=== PATIENT | male | born 1945 | race Caucasian/White ===

== ENCOUNTER 2020-07-26 17:39 | Inpatient (IN) | payer MEDICARE, BC, OTHER ==
[2020-07-26 18:20] LABS: #Lymphocytes 1.2 thou/uL (1.20-3.40); #Monocytes 1.2 thou/uL (0.11-0.59); #Neutrophils 12.4 thou/uL (1.40-6.50); %Basophils 0.2 % (0.0-1.0); %Eosinophils 0.1 % (0.0-10.0); %Lymphocytes 8.2 % (21.0-51.0); %Neutrophils 83.6 % (42.0-75.0); Hemoglobin 14.8 g/dL (14.0-18.0); Mean Corpuscular HGB CONC 33.1 g/dL (32.0-36.0); Mean Corpuscular Hemoglobin 31.6 pg (27.0-31.0); Mean Corpuscular Volume 95.5 fL (78.0-98.0); Mean Platelet Volume 8.4 fL (7.4-10.4); Platelet Count 190 thou/uL (130-400); RBC Distribution Width 12.5 % (11.5-14.5); Red Blood Cell (RBC) Count 4.67 mill/uL (4.70-6.10); White Blood Cell (WBC) Count 14.9 thou/uL (4.8-10.8)
--- NOTE | 2020-07-26 18:27 | CT ---
CT BRAIN WITHOUT CONTRAST HISTORY: Altered mental status. Level 2 stroke. Right-sided weakness Comparison 05/15/2013 FINDINGS: The changes of cortical atrophy, chronic small cell ischemic disease, old infarctions in the basal ga nglia and left frontal and left temporal lobe. The ventricular size is appropriate and the basilar cisterns patent. No evidence of acute infarct, hemorrhage, midline shift or abnormal extra-axial fluid collections are seen. The bony calvarium is intact. The visualized paranasal sinuses and mastoid air cells are well-aerated. IMPRESSION: No CT evidence of acute intracranial process. Discussed over the telephone with ER physician Dr. Jun Bergman at 6:23 PM
--- NOTE | 2020-07-26 18:32 | RAD ---
XR Chest 1 View Portable HISTORY: Altered mental status COMPARISON: 02/12/2020 FINDINGS: The heart size is enlarged. The lungs are well expanded without focal areas of consolidatio n, pneumothorax or pleural effusions. There is no evidence of josie pulmonary edema. Soft tissue prominence in the right paratracheal regio n is again seen. IMPRESSION: No radiographic evidence of acute cardiopulmonary process.
[2020-07-26 18:37] LABS: INR-International Normal Ratio 1.2; PTT 36.8 sec (22.9-36.1); Prothrombin Time 15.2 sec (12.0-14.7)
[2020-07-26 18:44] LABS: ALT (SGPT) 17 U/L (8-55); AST (SGOT) 14 U/L (5-34); Albumin 3.8 g/dL (3.4-4.8); Alkaline Phosphatase 138 U/L (40-110); Anion Gap 16 mmol/L (10-20); BUN (Urea Nitrogen) 31 mg/dL (8.4-25.7); Bilirubin, Total 1.4 mg/dL (0.2-1.2); CK (CPK) 188 U/L (30-200); Calc. Creatinine Clearance 0 mL/min (70-130); Calcium 9.2 mg/dL (7.8-10.44); Carbon Dioxide 25 mmol/L (23-31); Chloride 109 mmol/L (98-107); Estimated GFR-MDRD 20; Globulin 4.3 g/dL (2.4-3.5); Glucose 118 mg/dL (83-110); Potassium 4.1 mmol/L (3.5-5.1); Protein, Total 8.1 g/dL (5.8-8.1); Sodium 146 mmol/L (136-145)
[2020-07-26 19:10] LABS: Bilirubin 1+ (Negative); Blood, Urine Trace (Negative); Clarity Turbid (Clear); Glucose, Urine (Dipstick) Normal (Negative); Ketone, Urine Trace mg/dL (Negative); Leukocyte 75 Leu/uL (Negative); Nitrite Negative (Negative); Protein, Urine (Dipstick) 70 mg/dL (Neg-Trace); Squamous Epithelial 0-3 HPF (0-3)
[2020-07-26 19:12] LABS: Lipase 12 U/L (8-78)
[2020-07-26 19:15] LABS: Bacteria/HPF 1+ HPF (None Seen)
[2020-07-26] MEDS ORDERED: cefTRIAXone\\ROCEPHIN 1 GM VIAL ONE (20:16)
[2020-07-26] MEDS ORDERED: cefTRIAXone\\ROCEPHIN 2 GM VIAL ONE (20:23)
[2020-07-26] MEDS ORDERED: Aspirin Chewable 81 MG TAB ONE (20:39)
[2020-07-26] MEDS ORDERED: Vancomycin 1 GM/200 ML BAG ONE (20:59)
[2020-07-26 21:27] LABS: Lactic Acid 3.8 mmol/L (0.5-2.2)
[2020-07-26 22:58] VITALS: BMI 33.9
[2020-07-26] MEDS ORDERED: Ondansetron ODT 4 MG TAB PO PRN (23:00)
[2020-07-26] MEDS ORDERED: Acetaminophen 500 MG TAB PO PRN (23:00)
[2020-07-26] MEDS ORDERED: Loperamide HCl 2 MG CAP PO PRN (23:00)
[2020-07-26] MEDS ORDERED: Ondansetron PF 4 MG/2 ML Vial IVP PRN (23:00)
[2020-07-27] MEDS: Cefepime 1 GM in Sodium Chloride 0.9% 100 ML IVPB SCH ×2 (00:44→13:01)
[2020-07-27] MEDS: Sodium Chloride 0.9% 1,000 ML IV SCH ×3 (00:46→16:38)
--- NOTE | 2020-07-27 01:33 | HP ---
PRIMARY CARE PROVIDER: Dr. Wayne Zurita. CHIEF COMPLAINT: Altered mental status and weakness. HISTORY OF PRESENT ILLNESS: This is a 75-year-old male, who presents to [facility] Emergency Department in transfer from [facility] in [place], [place] after skilled nursing staff noted the patient with decreased level of consciousness and questionable right facial droop. 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 The history is obtained after review of the electronic medical record as the patient is unable to provide a coherent history due to severe aphasia. The patient is bed-bound at baseline, requiring assistance for all activities of daily living. In the emergency room, the patient underwent general evaluation, receiving treatment for suspected urinary tract infection with intravenous vancomycin and Rocephin. The patient was also meeting sepsis criteria and received IV fluid resuscitation, aspirin 324 mg, and was referred to the Hospitalist Service for further evaluation. PAST MEDICAL HISTORY: 1. 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 2. Bed-bound status. 3. Gastroesophageal reflux disease. 4. Dementia. 5. History of metabolic encephalopathy. 6. Hypertension. 7. Dysphagia status post PEG tube with subsequent removal. 8. COVID-19 pneumonia. PAST SURGICAL HISTORY: Status post PEG tube placement with subsequent removal 2019. CURRENT MEDICATIONS: 1. Lipitor 10 mg p.o. at bedtime. 2. Losartan 25 mg p.o. daily. 3. Amlodipine 5 mg p.o. daily. ALLERGIES: ASPARTAME, CODEINE, AND GUAIFENESIN. FAMILY HISTORY: Positive for hypertension. SOCIAL HISTORY: Resides at [place], [place]. No alcohol, tobacco, or illicit drug use. Bedbound status at baseline. REVIEW OF SYSTEMS: Unobtainable due to the patient's altered mental status and expressive aphasia. PHYSICAL EXAMINATION: VITAL SIGNS: On admission; blood pressure 99/78, pulse 104, respiratory rate 22, temperature 97.8 degrees Fahrenheit, and O2 saturation 96% on room air. GENERAL APPEARANCE: This is a 75-year-old male, alert, nods to questions with expressive aphasia, in no acute distress. HEENT: Pupils are equal, round, and reactive to light and accommodation. Extraocular muscles are intact. No scleral icterus. No conjunctival injection. Nares patent. OP is clear. Oral mucosa dry. NECK: Supple. No cervical adenopathy. No thyromegaly. No carotid bruits. No JVD appreciated. No meningeal signs noted. CHEST: Scattered coarse rhonchi in the bases, otherwise clear. CARDIOVASCULAR: S1 and S2 without noted murmur, rub, or gallop. ABDOMEN: Rounded, soft, nontender, and nondistended. Bowel sounds are positive in all 4 quadrants. No palpable mass. No rebound or guarding appreciated. Previous PEG tube insertion sites noted clean, dry, and intact. EXTREMITIES: Warm and dry with fair turgor. Pitting edema to the proximal shins bilaterally. Pulses palpable distally at the dorsalis pedis, posterior tibial, and popliteal arteries bilaterally. Capillary refill less than 2 seconds. NEUROLOGIC: Expressive aphasia. Right hemiplegia. Alert and oriented to person. PERTINENT LABORATORY AND X-RAY FINDINGS: Sodium 146, potassium 4.1, chloride 109, CO2 of 25, BUN 31, creatinine 3.07, estimated GFR of 20, glucose 118, lactic acid level ranged between 2.9 to 3.8, calcium 9.2, total bilirubin 1.4, AST 14, ALT of 17, alkaline phosphatase 138, and total CK of 188. BNP 48. Lipase 12. CBC showed a white blood cell count of 14.9, hemoglobin 14.8, hematocrit 44.6, and platelet count 190 with 84% neutrophils. PT 15.2, INR 1.2, and PTT 36.8. Urinalysis showed a turbid specimen with specific gravity 1.030, positive protein, and positive leukocyte esterase with 7 to 10 rbc's and 11 to 20 wbc's per high-powered field. Portable chest x-ray dated 07/26/2020, showed no acute cardiopulmonary process. CT of the brain without contrast dated 07/26/2020, showed no acute intracranial process. EKG dated 07/26/2020, by my interpretation shows sinus mechanism with heart rates in the 90s. Attenuated R-waves noted in the precordial leads. Normal axis. No acute ST-T wave changes appreciated. ASSESSMENT AND PLAN: 1. Sepsis due to urinary tract infection. The patient will be admitted to the medical floor. We will continue intravenous normal saline at 125 mL/h. Continue Levaquin 500 mg IV q.48 hours. Continue cefepime 1 g IV q.12 hours. Blood and urine cultures pending. Serial lactic acid monitoring. 2. Acute metabolic encephalopathy. Secondarily to #1. We will continue supportive management as outlined in #1. Serial monitoring. 3. Acute kidney injury on chronic kidney disease stage 3. Continue IV fluids as outlined previously. Avoid nephrotoxic agents and limit contrast exposure. Serial creatinine monitoring. Place Alvarez catheter for accurate measurements of output. 4. Lactic acidosis. Secondarily to #1. Continue serial monitoring. 5. Cerebrovascular accident with right hemiplegia and expressive aphasia. Continue routine care and monitor for evidence of aspiration. Turning protocol. 6. Prophylaxis. Sequential compression devices while in bed. Pepcid 20 mg IV b.i.d. 7. Code status is full. Surrogate medical decision maker is the patient's daughter. Job ID: [id number]
[2020-07-27 02:30] LABS: Lactic Acid 1.8 mmol/L (0.5-2.2)
[2020-07-27 06:02] LABS: #Lymphocytes 1.6 thou/uL (1.20-3.40); #Monocytes 1.5 thou/uL (0.11-0.59); #Neutrophils 8.2 thou/uL (1.40-6.50); %Basophils 0.2 % (0.0-1.0); %Eosinophils 0.4 % (0.0-10.0); %Lymphocytes 13.8 % (21.0-51.0); %Monocytes 13.3 % (0.0-10.0); %Neutrophils 72.3 % (42.0-75.0); Hemoglobin 12.9 g/dL (14.0-18.0); Mean Corpuscular HGB CONC 32.8 g/dL (32.0-36.0); Mean Corpuscular Hemoglobin 31.6 pg (27.0-31.0); Mean Corpuscular Volume 96.5 fL (78.0-98.0); Mean Platelet Volume 8.8 fL (7.4-10.4); Platelet Count 140 thou/uL (130-400); RBC Distribution Width 12.4 % (11.5-14.5); Red Blood Cell (RBC) Count 4.07 mill/uL (4.70-6.10); White Blood Cell (WBC) Count 11.3 thou/uL (4.8-10.8)
[2020-07-27 06:26] LABS: ALT (SGPT) 15 U/L (8-55); AST (SGOT) 16 U/L (5-34); Albumin 3.1 g/dL (3.4-4.8); Alkaline Phosphatase 108 U/L (40-110); Anion Gap 15 mmol/L (10-20); BUN (Urea Nitrogen) 25 mg/dL (8.4-25.7); Bilirubin, Total 0.8 mg/dL (0.2-1.2); Calc. Creatinine Clearance 48 mL/min (70-130); Calcium 7.9 mg/dL (7.8-10.44); Carbon Dioxide 19 mmol/L (23-31); Chloride 115 mmol/L (98-107); Estimated GFR-MDRD 32; Globulin 3.5 g/dL (2.4-3.5); Glucose 105 mg/dL (83-110); Potassium 3.8 mmol/L (3.5-5.1); Protein, Total 6.6 g/dL (5.8-8.1); Sodium 145 mmol/L (136-145)
[2020-07-27] MEDS: Amlodipine 5 MG TAB PO SCH (08:37)
[2020-07-27] MEDS: Famotidine/PF 20 mg/2ml Vial SLOW IVP SCH (08:37)
[2020-07-27] MEDS ORDERED: Cefepime 2 GM in Sodium Chloride 0.9% 100 ML IVPB SCH (09:00)
--- NOTE | 2020-07-27 11:34 | PDOC.HOSPP ---
- Subjective Encounter Date: 07/27/20 Encounter Time: 11:31 Subjective: Mr. Kaufman was seen today in follow-up of UTI and generalized weakness. He has expressive aphasia so he is not able to express his needs. He is awake, he appears a bit weak. - Objective Vital Signs & Weight: Vital Signs (12 hours) Temp Pulse Resp BP BP BP Pulse Ox 07/27/20 11:23 98 F 82 20 113/69 94 L 07/27/20 08:37 80 131/63 07/27/20 08:29 99 07/27/20 07:43 97.6 F 18 07/27/20 07:17 99.0 F 89 24 H 131/63 99 07/27/20 03:00 98.1 F 95 16 102/58 L 97 07/26/20 23:53 97 Weight Admit Weight 243 lb Weight 243 lb Result Diagrams: 07/27/20 05:26 07/27/20 05:26 Hospitalist ROS - Medication Medications: Active Medications Generic Name Dose Route Start Last Admin Trade Name Freq PRN Reason Stop Dose Admin Amlodipine Besylate 5 mg 07/27/20 09:00 07/27/20 08:37 Amlodipine 5 Mg Tab PO 5 mg DAILY ANTONIO Administration Famotidine 20 mg 07/27/20 09:00 07/27/20 08:37 Famotidine/Pf 20 Mg/2ml Vial SLOW IVP 20 mg 0900 ANTONIO Administration Sodium Chloride 1,000 mls @ 125 mls/hr 07/26/20 23:00 07/27/20 06:02 Normal Saline 0.9% IV 1,000 mls .Q8H ANTONIO Administration Cefepime HCl 1 gm/ Sodium 100 mls @ 200 mls/hr 07/27/20 01:00 07/27/20 00:44 Chloride IVPB 100 mls 0100,1300 ANTONIO Administration Ondansetron HCl 4 mg 07/26/20 23:00 07/27/20 09:49 Ondansetron Pf 4 Mg/2 Ml Vial IVP 4 mg Q6H PRN Administration Nausea/Vomiting - Exam Eye: PERRL, anicteric sclera ENT: dry oral mucosa Heart: RRR, no murmur, no gallops, no rubs, normal peripheral pulses Respiratory: CTAB, no wheezes, no rales, no ronchi, normal chest expansion, no tachypnea Gastrointestinal: soft, non-tender, non-distended, normal bowel sounds, no palpable masses Extremities: no cyanosis, no edema Hosp A/P (1) UTI (urinary tract infection) Status: Acute (2) Generalized weakness Code(s): R53.1 - WEAKNESS Status: Acute (3) Hypertension Code(s): I10 - ESSENTIAL (PRIMARY) HYPERTENSION Status: Chronic (4) Dementia Code(s): F03.90 - UNSPECIFIED DEMENTIA WITHOUT BEHAVIORAL DISTURBANCE Status: Chronic (5) CVA, old, aphasia Code(s): I69.320 - APHASIA FOLLOWING CEREBRAL INFARCTION Status: Chronic (6) Acute kidney injury Code(s): N17.9 - ACUTE KIDNEY FAILURE, UNSPECIFIED Status: Acute - Plan * UTI- continue Levaquin and Cefepime pending culture results * SONIA- due to pre-renal azotemia- improving with hydration * History of CVA with aphasia- aspiration precautions * HTN- blood pressure is stable- will continue Amlodipine, but will hold Losartan due to acute kidney injury * Dementia- stable
[2020-07-27] MEDS: Vancomycin HCl 25 MG/ML Oral PO SCH ×2 (13:05→17:33)
[2020-07-27 15:03] LABS: SARS-CoV-2 MS2 Positive; SARS-CoV-2 N Gene Negative; SARS-CoV-2 S Gene Negative; SARS-CoV-2 by NAA Not Detected (NotDetected); SARS-CoV-2 orf1ab Negative
[2020-07-27] MEDS ORDERED: Losartan 25 MG TAB PO SCH (21:00)
[2020-07-28] MEDS: Sodium Chloride 0.9% 1,000 ML IV SCH ×4 (00:05→23:09)
[2020-07-28] MEDS: Vancomycin HCl 25 MG/ML Oral PO SCH ×4 (00:06→17:44)
[2020-07-28] MEDS: Cefepime 1 GM in Sodium Chloride 0.9% 100 ML IVPB SCH ×4 (00:06→21:25)
[2020-07-28] MEDS: Amlodipine 5 MG TAB PO SCH (08:09)
[2020-07-28] MEDS: Famotidine/PF 20 mg/2ml Vial SLOW IVP SCH (08:10)
[2020-07-28 08:44] LABS: Anion Gap 12 mmol/L (10-20); BUN (Urea Nitrogen) 15 mg/dL (8.4-25.7); Calc. Creatinine Clearance 73 mL/min (70-130); Calcium 7.8 mg/dL (7.8-10.44); Carbon Dioxide 20 mmol/L (23-31); Chloride 117 mmol/L (98-107); Estimated GFR-MDRD 52; Glucose 83 mg/dL (83-110); Magnesium 1.7 mg/dL (1.6-2.6); Potassium 3.8 mmol/L (3.5-5.1); Sodium 145 mmol/L (136-145)
--- NOTE | 2020-07-28 09:42 | PDOC.HOSPP ---
- Subjective Encounter Date: 07/28/20 Encounter Time: 09:34 Subjective: Mr. Kaufman was see today in follow-up of UTI and C. Diff. He is disoriented X3. He does not appear to have any concerns. - Objective Vital Signs & Weight: Vital Signs (12 hours) Temp Pulse Resp BP BP Pulse Ox 07/28/20 08:09 71 152/84 H 07/28/20 08:05 94 L 07/28/20 07:20 98.8 F 71 20 152/84 H 94 L 07/27/20 23:56 97.8 F 75 18 125/75 97 Weight Admit Weight 243 lb Weight 243 lb I&O: 07/27/20 07/28/20 07/29/20 06:59 06:59 06:59 Intake Total 3600 Output Total 1550 Balance 2049 Result Diagrams: 07/27/20 05:26 07/28/20 08:06 Additional Labs: Accuchecks 07/26/20 18:33 POC Glucose 136 H Hospitalist ROS - Medication Medications: Active Medications Generic Name Dose Route Start Last Admin Trade Name Freq PRN Reason Stop Dose Admin Amlodipine Besylate 5 mg 07/27/20 09:00 07/28/20 08:09 Amlodipine 5 Mg Tab PO 5 mg DAILY ANTONIO Administration Famotidine 20 mg 07/27/20 09:00 07/28/20 08:10 Famotidine/Pf 20 Mg/2ml Vial SLOW IVP 20 mg 0900 ANTONIO Administration Sodium Chloride 1,000 mls @ 125 mls/hr 07/26/20 23:00 07/28/20 09:09 Normal Saline 0.9% IV 1,000 mls .Q8H ANTONIO Administration Cefepime HCl 1 gm/ Sodium 100 mls @ 200 mls/hr 07/27/20 01:00 07/28/20 00:06 Chloride IVPB 100 mls 0100,1300 ANTONIO Administration Ondansetron HCl 4 mg 07/26/20 23:00 07/27/20 09:49 Ondansetron Pf 4 Mg/2 Ml Vial IVP 4 mg Q6H PRN Administration Nausea/Vomiting Vancomycin HCl 125 mg 07/27/20 12:00 07/28/20 05:53 Vancomycin Hcl 25 Mg/Ml Oral PO 125 mg Q6HR ANTONIO Administration - Exam Eye: PERRL, anicteric sclera Heart: RRR, no murmur, no gallops, no rubs, normal peripheral pulses Respiratory: CTAB, no wheezes, no rales, normal chest expansion Gastrointestinal: soft, non-tender, non-distended, normal bowel sounds, no palpable masses Extremities: no cyanosis, no edema Hosp A/P (1) UTI (urinary tract infection) Status: Acute (2) Generalized weakness Code(s): R53.1 - WEAKNESS Status: Acute (3) Hypertension Code(s): I10 - ESSENTIAL (PRIMARY) HYPERTENSION Status: Chronic (4) Dementia Code(s): F03.90 - UNSPECIFIED DEMENTIA WITHOUT BEHAVIORAL DISTURBANCE Status: Chronic (5) CVA, old, aphasia Code(s): I69.320 - APHASIA FOLLOWING CEREBRAL INFARCTION Status: Chronic (6) Acute kidney injury Code(s): N17.9 - ACUTE KIDNEY FAILURE, UNSPECIFIED Status: Acute - Plan * UTI- Urine culture was not done. Will consider de-escalating antibiotics tomorrow and see how he does * SONIA- continued improvement with hydration * History of CVA with aphasia- aspiration precautions * HTN- blood pressure is stable- will continue Amlodipine,continue to hold losartan * Dementia- stable
[2020-07-28] MEDS ORDERED: Levofloxacin 750 mg/D5W 500 MG in Premix Bag 1 BAG IVPB SCH (23:00)
[2020-07-29] MEDS: Vancomycin HCl 25 MG/ML Oral PO SCH ×4 (00:51→17:24)
[2020-07-29] MEDS: Sodium Chloride 0.9% 1,000 ML IV SCH ×3 (04:39→22:44)
[2020-07-29] MEDS: Cefepime 1 GM in Sodium Chloride 0.9% 100 ML IVPB SCH ×3 (04:40→22:34)
[2020-07-29 08:12] LABS: Anion Gap 11 mmol/L (10-20); BUN (Urea Nitrogen) 10 mg/dL (8.4-25.7); Calc. Creatinine Clearance 86 mL/min (70-130); Calcium 7.5 mg/dL (7.8-10.44); Carbon Dioxide 21 mmol/L (23-31); Chloride 115 mmol/L (98-107); Estimated GFR-MDRD 62; Glucose 81 mg/dL (83-110); Potassium 3.6 mmol/L (3.5-5.1); Sodium 143 mmol/L (136-145)
[2020-07-29] MEDS: Amlodipine 5 MG TAB PO SCH (08:58)
[2020-07-29] MEDS: Famotidine/PF 20 mg/2ml Vial SLOW IVP SCH ×2 (08:58→22:34)
--- NOTE | 2020-07-29 09:32 | PDOC.HOSPP ---
- Subjective Encounter Date: 07/29/20 Encounter Time: 09:28 Subjective: Mr. Kaufman was seen today in follow-up of UTI. He appears at his baseline. No diarrhea has been reported - Objective Vital Signs & Weight: Vital Signs (12 hours) Temp Pulse Resp BP BP Pulse Ox 07/29/20 08:58 64 124/72 07/29/20 07:08 98.5 F 64 18 124/72 94 L Weight Admit Weight 243 lb Weight 243 lb I&O: 07/28/20 07/29/20 07/30/20 06:59 06:59 06:59 Intake Total 3600 3984 Output Total 1550 1300 Balance 2049 2684 Result Diagrams: 07/27/20 05:26 07/29/20 07:38 Hospitalist ROS - Medication Medications: Active Medications Generic Name Dose Route Start Last Admin Trade Name Freq PRN Reason Stop Dose Admin Amlodipine Besylate 5 mg 07/27/20 09:00 07/29/20 08:58 Amlodipine 5 Mg Tab PO 5 mg DAILY ANTONIO Administration Famotidine 20 mg 07/27/20 09:00 07/29/20 08:58 Famotidine/Pf 20 Mg/2ml Vial SLOW IVP 20 mg 0900 ANTONIO Administration Sodium Chloride 1,000 mls @ 125 mls/hr 07/26/20 23:00 07/29/20 04:39 Normal Saline 0.9% IV 1,000 mls .Q8H ANTONIO Administration Levofloxacin 500 mg/ Device 100 mls @ 100 mls/hr 07/28/20 23:00 07/28/20 23:08 IVPB 100 mls Q2D@2300 ANTONIO Administration Cefepime HCl 1 gm/ Sodium 100 mls @ 200 mls/hr 07/28/20 13:00 07/29/20 04:40 Chloride IVPB 100 mls Q8H ANTONIO Administration Ondansetron HCl 4 mg 07/26/20 23:00 07/27/20 09:49 Ondansetron Pf 4 Mg/2 Ml Vial IVP 4 mg Q6H PRN Administration Nausea/Vomiting Vancomycin HCl 125 mg 07/27/20 12:00 07/29/20 04:40 Vancomycin Hcl 25 Mg/Ml Oral PO 125 mg Q6HR ANTONIO Administration - Exam Eye: PERRL, anicteric sclera Heart: RRR, no murmur, no gallops, no rubs, normal peripheral pulses Respiratory: CTAB, no wheezes, no rales, no ronchi, normal chest expansion, no tachypnea Gastrointestinal: soft, non-tender, non-distended, normal bowel sounds, no palpable masses, no hepatomegaly Extremities: no cyanosis, 1+ LE edema Hosp A/P (1) UTI (urinary tract infection) Status: Acute (2) Generalized weakness Code(s): R53.1 - WEAKNESS Status: Acute (3) Hypertension Code(s): I10 - ESSENTIAL (PRIMARY) HYPERTENSION Status: Chronic (4) Dementia Code(s): F03.90 - UNSPECIFIED DEMENTIA WITHOUT BEHAVIORAL DISTURBANCE Status: Chronic (5) CVA, old, aphasia Code(s): I69.320 - APHASIA FOLLOWING CEREBRAL INFARCTION Status: Chronic (6) Acute kidney injury Code(s): N17.9 - ACUTE KIDNEY FAILURE, UNSPECIFIED Status: Acute - Plan * UTI- Urine culture was not done. Since we do not have a urine culture to guide therapy- will treat one more day with both antibiotics * C- Diff- continue oral Vancomycin- he has not be having diarrhea * SONIA- continued improvement with hydration * History of CVA with aphasia- aspiration precautions * HTN- blood pressure is stable- will continue Amlodipine,continue to hold losartan * Dementia- stable * If he continues to be stable- will consider discharge tomorrow
--- NOTE | 2020-07-29 12:04 | PQF ---
CLINICAL DOCUMENTATION CLARIFICATION FORM: Dear Dr.TONI ZHAO Date: 07-29-20 Please exercise your independent, professional judgment in responding to the clarification form. Clinical indicators are provided on the bottom of this form for your review. Please check appropriate box(es) to clarify if the following diagnosis has been ruled in our ruled out: SEPSIS [ X ] Ruled in diagnosis [ ] Continue to treat [ ] Resolved [ ] Ruled out diagnosis [ ] Other diagnosis [ ] Unable to determine In addition, please specify: Present on Admission (POA): [ X] Yes [ ] No [ ] Unable to determine For continuity of documentation, please document condition throughout progress notes and discharge summary. Thank You. To be completed by CDI/Coding staff for physician review: CLINICAL INDICATORS - SIGNS / SYMPTOMS / LABS / RESULTS AND LOCATION IN MR: ER DX: 07-27-20: SEPSIS, AMS, UTI H&P 07-26-20: SEPSIS D/T UTI, ACUTE METABOLIC ENCEPHALOPATHY, SONIA ON CKD 3, LACTIC ACIDOSIS PN DR. ZHAO 07-29-20: F/U UTI, GENERALIZED WEAKNESS, HTN, DEMENTIA, SONIA RISK FACTORS / RESULTS AND LOCATION IN MR: H&P 07-26-20: SEPSIS D/T UTI, ACUTE METABOLIC ENCEPHALOPATHY, SONIA ON CKD 3, LACTIC ACIDOSIS TREATMENTS / RESULTS AND LOCATION IN MR: MAR: 07-27-20: VANCOMYCIN PO, MAXIPIME IV, NS IVF CDS Signature: Evelyn Alvarado Phone #: [phone] Date: 07-29-20 This is a permanent part of the Medical Record [facility]
[2020-07-30] MEDS: Vancomycin HCl 25 MG/ML Oral PO SCH ×3 (01:20→12:37)
[2020-07-30] MEDS: Cefepime 1 GM in Sodium Chloride 0.9% 100 ML IVPB SCH ×2 (06:39→12:36)
[2020-07-30] MEDS: Amlodipine 5 MG TAB PO SCH (08:25)
[2020-07-30] MEDS: Sodium Chloride 0.9% 1,000 ML IV SCH (08:26)
[2020-07-30] MEDS: Famotidine/PF 20 mg/2ml Vial SLOW IVP SCH (08:26)
--- NOTE | 2020-07-30 10:58 | PDOC.HOSPP ---
- Subjective Encounter Date: 07/30/20 Encounter Time: 10:57 Subjective: Mr. Kaufman was seen today in follow-up of UTI . He is awake and alert. No complaints voiced by staff. He has been reported to be eating well. - Objective Vital Signs & Weight: Vital Signs (12 hours) Temp Pulse Resp BP BP Pulse Ox 07/30/20 08:25 62 139/72 07/30/20 07:11 97.9 F 62 20 139/72 94 L Weight Admit Weight 243 lb Weight 243 lb I&O: 07/29/20 07/30/20 07/31/20 06:59 06:59 06:59 Intake Total 3984 820 Output Total 1300 900 Balance 9394 -80 Result Diagrams: 07/27/20 05:26 07/29/20 07:38 Hospitalist ROS - Medication Medications: Active Medications Generic Name Dose Route Start Last Admin Trade Name Freq PRN Reason Stop Dose Admin Amlodipine Besylate 5 mg 07/27/20 09:00 07/30/20 08:25 Amlodipine 5 Mg Tab PO 5 mg DAILY ANTONIO Administration Famotidine 20 mg 07/29/20 21:00 07/30/20 08:26 Famotidine/Pf 20 Mg/2ml Vial SLOW IVP 20 mg Q12HR ANTONIO Administration Sodium Chloride 1,000 mls @ 125 mls/hr 07/26/20 23:00 07/30/20 08:26 Normal Saline 0.9% IV 1,000 mls .Q8H ANTONIO Administration Cefepime HCl 1 gm/ Sodium 100 mls @ 200 mls/hr 07/28/20 13:00 07/30/20 06:39 Chloride IVPB 100 mls Q8H ANTONIO Administration Ondansetron HCl 4 mg 07/26/20 23:00 07/27/20 09:49 Ondansetron Pf 4 Mg/2 Ml Vial IVP 4 mg Q6H PRN Administration Nausea/Vomiting Vancomycin HCl 125 mg 07/27/20 12:00 07/30/20 06:39 Vancomycin Hcl 25 Mg/Ml Oral PO 125 mg Q6HR ANTONIO Administration - Exam Eye: PERRL, anicteric sclera Heart: RRR, no murmur, no gallops, no rubs, normal peripheral pulses Respiratory: CTAB, no wheezes, no rales, no ronchi, normal chest expansion, no tachypnea Gastrointestinal: soft, non-tender, non-distended, normal bowel sounds, no palpable masses, no hepatomegaly Extremities: no cyanosis, no edema Hosp A/P (1) UTI (urinary tract infection) Status: Acute (2) Generalized weakness Code(s): R53.1 - WEAKNESS Status: Acute (3) Hypertension Code(s): I10 - ESSENTIAL (PRIMARY) HYPERTENSION Status: Chronic (4) Dementia Code(s): F03.90 - UNSPECIFIED DEMENTIA WITHOUT BEHAVIORAL DISTURBANCE Status: Chronic (5) CVA, old, aphasia Code(s): I69.320 - APHASIA FOLLOWING CEREBRAL INFARCTION Status: Chronic (6) Acute kidney injury Code(s): N17.9 - ACUTE KIDNEY FAILURE, UNSPECIFIED Status: Acute - Plan * UTI- Urine culture was not done. clinically stable- will transition to Omnicef * C- Diff- continue oral Vancomycin- continue Oral Vancomycin * SONIA- continued improvement with hydration * History of CVA with aphasia- aspiration precautions * HTN- blood pressure is stable- will continue Amlodipine,continue to hold losartan * Dementia- stable * Back to the nursing facility
[2020-07-30 13:47] VITALS: BP 150/79; TEMP 97.5
--- NOTE | 2020-07-31 00:04 | DIS ---
DATE OF ADMISSION: 07/26/2020 DATE OF DISCHARGE: 07/30/2020 DISCHARGE DISPOSITION: Back to [facility]. DISCHARGE DIAGNOSES: 1. Urinary tract infection. 2. History of remote hemorrhagic cerebrovascular accident with residual right hemiplegia and expressive aphasia. 3. Bed-bound status. 4. Gastroesophageal reflux disease. 5. Dementia. 6. Hypertension. 7. Metabolic encephalopathy. 8. Dysphagia. 9. History of previous COVID-19 pneumonia. 10. Clostridium difficile infection. DISCHARGE MEDICATIONS: Include; 1. Oral vancomycin 125 mg q.6 hours for 10 more days. 2. Omnicef 300 mg p.o. b.i.d. for 5 more days. 3. Florastor 250 mg p.o. daily. 4. Ventolin HFA two puffs q.6 as needed. 5. Aspirin 325 mg 2 tablets q.4 hours as needed. 6. Lipitor 10 mg p.o. daily. 7. GlycoLax 17 g p.o. daily. 8. Cozaar 25 mg p.o. at bedtime. 9. Benzonatate 100 mg p.o. b.i.d. IMAGING DONE DURING THE HOSPITAL STAY: The patient had a CT scan of the brain, which showed no evidence of any acute intracranial process. CODE STATUS: Full code. ALLERGIES: TO ASPARTAME, CODEINE, AND GUAIFENESIN. HOSPITAL COURSE: Mr. Kaufman is a pleasant 75-year-old gentleman, who was sent over from [place] due to altered mental status and weakness. He has a known history of remote intracranial hemorrhage with some residual right hemiplegia and expressive aphasia. He was found to have a urinary tract infection; however, unfortunately, his urine culture had not been done. Blood cultures were negative. He did have some diarrhea on admission, was found to have a C. difficile infection. He was placed on oral vancomycin for this. Regarding the urinary tract infection since the urine culture had not been sent, there was no guidance with regard to antimicrobial therapy. He had done well on Levaquin and cefepime during his hospital stay. He was kept a couple additional days to ensure adequate therapy and was discharged home on oral Omnicef. He was also discharged on a probiotic as well. Job ID: [id number]
== END 2020-07-30 13:39 | DRG 871 ==
LOC: ERS 17:39 → T4-A 20:38
PROVIDERS: ADMIT Student in an Organized Health Care Education/Training Program; ATTEND Student in an Organized Health Care Education/Training Program
DX: A41.9 Sepsis, unspecified organism (principal); G93.41 Metabolic encephalopathy; I69.251 Hemiplegia and hemiparesis following other nontraumatic intracranial hemorrhage affecting right dominant side; N39.0 Urinary tract infection, site not specified; N17.9 Acute kidney failure, unspecified; E87.2 Acidosis; A04.72 Enterocolitis due to Clostridium difficile, not specified as recurrent; Z20.828 Contact with and (suspected) exposure to other viral communicable diseases; K21.9 Gastro-esophageal reflux disease without esophagitis; I12.9 Hypertensive chronic kidney disease with stage 1 through stage 4 chronic kidney disease, or unspecified chronic kidney disease; R13.10 Dysphagia, unspecified; R53.1 Weakness; F03.90 Unspecified dementia, unspecified severity, without behavioral disturbance, psychotic disturbance, mood disturbance, and anxiety; N18.3 Chronic kidney disease, stage 3 (moderate); I69.220 Aphasia following other nontraumatic intracranial hemorrhage; Z88.5 Allergy status to narcotic agent; Z88.8 Allergy status to other drugs, medicaments and biological substances; Z74.01 Bed confinement status; Z86.19 Personal history of other infectious and parasitic diseases
CPT/HCPCS: 36415; 36416; 36600; 70450; 71045; 80048; 80053; 81003; 81015; 82550; 83605; 83630; 83690; 83735; 83880; 84484; 85025; 85610; 85730; 87040; 87045; 87046; 87081; 87186; 87324; 87427; 87449; 87635; 93005; J0692; J0696; J1956; J2405; J3370; J3490; S0028; U0003

== ENCOUNTER 2020-08-14 12:59 | Inpatient (IN) | payer MEDICARE, BC, OTHER ==
[~2020-08-14 12:59] MED LIST: Iopamidol-370 76% 500 ML 1 ML ONE
[2020-08-14 13:23] LABS: #Eosinphils 0.3 thou/uL (0.0-0.7); #Lymphocytes 2.4 thou/uL (1.20-3.40); #Monocytes 0.5 thou/uL (0.11-0.59); #Neutrophils 4.5 thou/uL (1.40-6.50); %Basophils 0.3 % (0.0-1.0); %Eosinophils 3.3 % (0.0-10.0); %Lymphocytes 31.2 % (21.0-51.0); %Monocytes 6.9 % (0.0-10.0); %Neutrophils 58.3 % (42.0-75.0); Hemoglobin 13.8 g/dL (14.0-18.0); Mean Corpuscular HGB CONC 34.6 g/dL (32.0-36.0); Mean Corpuscular Hemoglobin 32.1 pg (27.0-31.0); Mean Corpuscular Volume 92.8 fL (78.0-98.0); Platelet Count 194 thou/uL (130-400); RBC Distribution Width 12.6 % (11.5-14.5); Red Blood Cell (RBC) Count 4.29 mill/uL (4.70-6.10); White Blood Cell (WBC) Count 7.8 thou/uL (4.8-10.8)
[2020-08-14 13:27] LABS: PTT 35.1 sec (22.9-36.1); Prothrombin Time 14.5 sec (12.0-14.7)
[2020-08-14 13:28] LABS: INR-International Normal Ratio 1.1
--- NOTE | 2020-08-14 13:50 | RAD ---
PORTABLE CHEST: 08/14/20 HISTORY: Mental status change. COMPARISON: 07/26/20 Lungs appear clear. No infiltrate or vascular congestion. Cardiomegaly is stable. IMPRESSION: No acute process or interval change. POS: AGW
[2020-08-14] MEDS ORDERED: Metoprolol Tartrate 5 MG/5 ML VIAL ONE (14:10)
--- NOTE | 2020-08-14 14:12 | CT ---
CT HEAD WITHOUT CONTRAST: 08/14/20 INDICATION: Level I stroke. New left sided weakness. COMPARISON: Recent CT of 07/26/20. Old left sided infarct changes again noted with encephalomalacia in the left temporal lobe and in the left frontal lobe. Severe chronic ischemic white matter changes are again noted. Old lacunar infarct s in the right basal ganglia again noted. There is no evidence of acute infarct, mass, or hemorrhage. The findings appear stable from 07/26/20. IMPRESSION: No acute interval change. Findings related to Dr. Felton at 1:15 p.m. POS: CHAZ
[2020-08-14 14:24] LABS: Albumin 3.4 g/dL (3.4-4.8)
[2020-08-14 14:25] LABS: Chloride 108 mmol/L (98-107); Sodium 143 mmol/L (136-145)
[2020-08-14 14:26] LABS: Calcium 8.6 mg/dL (7.8-10.44)
[2020-08-14 14:27] LABS: Globulin 4.2 g/dL (2.4-3.5); Glucose 83 mg/dL (83-110); Protein, Total 7.6 g/dL (5.8-8.1)
[2020-08-14 14:28] LABS: Anion Gap 14 mmol/L (10-20); Carbon Dioxide 25 mmol/L (23-31)
[2020-08-14 14:29] LABS: Bilirubin, Total 1.1 mg/dL (0.2-1.2)
[2020-08-14 14:30] LABS: Alkaline Phosphatase 103 U/L (40-110); Calc. Creatinine Clearance 0 mL/min (70-130); Estimated GFR-MDRD 58
[2020-08-14 14:31] LABS: BUN (Urea Nitrogen) 10 mg/dL (8.4-25.7)
[2020-08-14 14:32] LABS: AST (SGOT) 25 U/L (5-34)
[2020-08-14 14:33] LABS: ALT (SGPT) 23 U/L (8-55); CK (CPK) 54 U/L (30-200)
--- NOTE | 2020-08-14 14:50 | CT ---
CTA HEAD WITH CONTRAST: CTA NECK WITH CONTRAST: 08/14/20 Multiple axial tomograms obtained through the head and neck following angio protocol with multiplanar reconstruction and 3D postprocessing. INDICATIONS: Stroke protocol. Left sided weakness. CTA HEAD: The intracranial internal carotid arteries appear patent and symmetric. Cavernous ICAs are patent wit h mild atherosclerotic calcification. No significant stenosis. Both M1 segments are patent. Lumenal n arrowing of the distal left M1 segment. The degree of stenosis may approach 50% by NASCET criteria. M ild decrease in the left M2 and M3 branches at site of previously noted infarct. The basilar artery is ectatic and tortuous. Both posterior cerebral arteries are patent and appear sy mmetric. IMPRESSION: 1. There is luminal narrowing of the distal left M1 segment. Degree of stenosis may approach 50% according to NASCET criteria. 2. No other evidence of significant cerebral stenosis or occlusion. CTA NECK: No evidence of stenosis at the origin of the arch vessels. The common carotid arteries are unremarkab le. Atherosclerotic changes are seen in both bulbs. There is no evidence of extracranial internal carotid artery stenosis. The vertebral arteries are patent and symmetric. No soft tissue abnormality. IMPRESSION: Atherosclerotic changes in both bulbs without evidence of extracranial internal carotid artery stenos is. Findings relayed to Dr. Felton. Code CR POS: CHAZ
[2020-08-14] MEDS ORDERED: Aspirin 300 MG Suppository ONE (15:46)
[2020-08-14 16:21] LABS: Bacteria/HPF None Seen HPF (None Seen); Bilirubin Negative (Negative); Blood, Urine 3+ (Negative); Clarity Clear (Clear); Glucose, Urine (Dipstick) Normal (Negative); Ketone, Urine Trace mg/dL (Negative); Leukocyte Negative Leu/uL (Negative); Nitrite Negative (Negative); Protein, Urine (Dipstick) 20 mg/dL (Neg-Trace); RBC/HPF Greater than 50 HPF (0-3); Specific Gravity, Urine 1.044 (1.002-1.036); Squamous Epithelial 0-3 HPF (0-3); Urobilinogen Normal mg/dL (Less than 2); WBC/HPF 0-3 HPF (0-3)
[2020-08-14] MEDS ORDERED: hydrALAZINE 20 MG/ML VIAL SLOW IVP PRN (17:30)
[2020-08-14] MEDS ORDERED: Acetaminophen 650 MG Suppository PR PRN (17:32)
[2020-08-14] MEDS ORDERED: Albuterol Sulfate 2.5 mg/3 ml Neb NEB PRN (17:48)
--- NOTE | 2020-08-14 18:17 | HP ---
CHIEF COMPLAINT: Altered. HISTORY OF PRESENT ILLNESS: This is a 75-year-old male with history of hemorrhagic stroke, hypertension, dyslipidemia, recent hospitalization here for UTI, who was sent to this facility from the longterm due to a change in patient's status. All of the history is obtained from the nurse and the emergency room physician, who spoke with the nursing facility. The patient is sent today because he was not responsive to sternal rub, unknown last time that he was normal. All of this is new as they report that he was although bed-bound, he was getting up with physical therapy and use of a walker. The patient does have dysarthria, right-sided weakness associated with prior stroke. He also had dysphagia and had a PEG tube up until, by report, 3 weeks ago when he pulled it out. Since then, he has been taking PO. On the documentation sent from the nursing facility, it also shows that he had emesis today x1. In the emergency room, patient had an NIH score initially of 14 which went down to 11 over time. He has an abnormal CT angiogram and Dr. Felton stated that he spoke with Dr. Hooker and there is no intervention available. The patient was not a candidate for tPA. The patient received aspirin 300 mg rectal, metoprolol tartrate 5 mg IV for elevated blood pressures, although not all of it was administered as his heart rate declined into the 50s by report. Hospitalist called for admission. ALLERGIES: OBTAINED FROM CHART REVIEW; 1. ASPARTAME. 2. CODEINE. 3. GUAIFENESIN. CURRENT MEDICATIONS: Reconciled with the list from the nursing facility; 1. Acetaminophen 325 mg two tablets every 4 hours as needed. 2. Atorvastatin 10 mg once daily. 3. Benzonatate 100 mg every 12 hours as needed. 4. Florastor 250 mg once daily. 5. GlycoLax every 24 hours as needed. 6. Hydrocortisone cream to rash on face b.i.d. for 10 days. 7. Losartan 25 mg at bedtime. 8. Nystatin powder topically to scrotum 3 times a day. 9. Prozac 20 mg once a day. 10. Ventolin 3 times a day, this does not stay as needed. PAST MEDICAL HISTORY - based on chart review: 1. History of hemorrhagic stroke with right-sided deficits, dysarthria, and dysphagia. 2. Dyslipidemia. 3. Hypertension. 4. Recent UTI. 5. Recent C. difficile infection. 6. Bed-bound status. 7. GERD. 8. Dementia. 9. History of COVID-19 infection. PAST SURGICAL HISTORY: - based on chart review PEG tube with subsequent removal. REVIEW OF SYSTEMS: Not obtainable from the patient. He simply states that there are no problems. FAMILY HISTORY - based on chart review: Significant for hypertension based on chart review. SOCIAL HISTORY- based on chart review: The patient is a resident at a local nursing facility at [place]. His emergency contact is his daughter, listed in the records. He is a full code based on the documentation. PHYSICAL EXAMINATION: VITAL SIGNS: Blood pressure 159/75, temp 98.4, pulse 70, respirations 18, sat 95% on room air. GENERAL: He is awake, he follows commands. He responds with simple phrases. He is not in apparent distress. HEENT: Pupils are equal and round. No scleral icterus. Oral mucosa is dry. NECK: Supple, nontender. LYMPHATICS: No palpable cervical or supraclavicular lymphadenopathy. LUNGS: Clear to auscultation bilateral. No audible wheezing, rhonchi, or rales. HEART: Normal S1, S2. Regular rate and rhythm. No significant murmur. ABDOMEN: Soft with present bowel sounds. Nontender, nondistended. EXTREMITIES: No clubbing, cyanosis, or edema. VASCULAR: 2+ dorsalis pedis pulses. NEUROLOGIC: The patient has some garbled speech. He has decreased range of motion and strength throughout the right side, unable to fully assess. Strength 5/5 throughout the left side. PSYCH: Appears euthymic. Follows commands. Response to simple questions. SKIN: No visible rashes. LABORATORY DATA: Today, CBC, 7.8, 13.8, 39.8, 194. INR 1.1. Metabolic panel; 143, 4.0, 108, 25, 10, 1.21, 83. T bilirubin 1.1, AST 25, ALT 23, alkaline phosphatase 103, total protein 7.6, albumin 3.4. Urinalysis, spec gravity 1.044, trace ketones, 3+ blood, greater than 50 red blood cells. EKG shows sinus rhythm, normal axis, a QT corrected of 457, T-wave inversions in the inferior leads and throughout the precordium with an abnormal R-wave progression. Failed bedside swallow. Chest x-ray personally reviewed. No acute process. CT angiogram of the head shows luminal narrowing of the distal left M1 segment. The degree of stenosis may approach 50%. No other evidence of significant cerebral stenosis or occlusion. CT of the brain without contrast, no acute interval change, old left-sided infarct changes with encephalomalacia in the left temporal lobe, left frontal lobe, severe chronic ischemic white matter changes, old lacunar infarcts in the right basal ganglia. IMPRESSION: 1. Acute mental status changes concerning for an acute stroke in the context of known chronic stroke for this patient. This seems to have improved throughout the day. 2. Hypertension, unknown control. 3. Dyslipidemia, unknown control. 4. Hematuria with recent urinary tract infection. 5. Recent Clostridium difficile infection. 6. Anemia, mild. 7. Carotid stenosis on CT-A with no indication for acute surgical intervention PLAN: 1. Inpatient admission as this patient has significant deficits, requires an extensive workup and is anticipated to be here at least 2 midnights. 2. Evaluation by Neurology, the Stroke Team which includes speech, PT and OT. 3. MRI of the brain and echocardiogram. 4. N.p.o. until evaluated by Speech. We will hydrate with IV fluids. 5. Permissive hypertension with p.r.n. hydralazine if blood pressure is greater than 220/110. 6. Continue rectal aspirin dosing at every 24 hours. 7. Hold his home medications as he is n.p.o. 8. Monitor on telemetry. 9. We will order p.r.n. albuterol as it is on his medication list at the nursing facility. 10. We will need outpatient evaluation for hematuria. We will order a urine culture here. 11. Further care depending on hospital course. 12. Palliative care consult given this complex situation of what looks like an acute on chronic stroke, both to work with the patient as well his family. 13. DVT prophylaxis. We will use SCDs. 14. GI prophylaxis not indicated. 15. Code status is full. 16. The patient is at high risk given age, comorbidities, and current presentation. Job ID: [id number] [facility]
[2020-08-14 18:22] VITALS: BMI 33.5
[2020-08-14] MEDS: Sodium Chloride 0.9% 1,000 ML IV SCH (18:42)
[2020-08-15] MEDS: Sodium Chloride 0.9% 1,000 ML IV SCH ×2 (04:36→14:46)
[2020-08-15 05:36] LABS: Cardiac Risk 2.9 (Less than 4.5)
[2020-08-15 07:45] LABS: #Eosinphils 0.2 thou/uL (0.0-0.7); #Monocytes 0.5 thou/uL (0.11-0.59); #Neutrophils 3.1 thou/uL (1.40-6.50); %Basophils 0.6 % (0.0-1.0); %Eosinophils 3.5 % (0.0-10.0); %Lymphocytes 34.6 % (21.0-51.0); %Monocytes 7.9 % (0.0-10.0); %Neutrophils 53.4 % (42.0-75.0); Hemoglobin 12.5 g/dL (14.0-18.0); Mean Corpuscular Hemoglobin 31.3 pg (27.0-31.0); Platelet Count 177 thou/uL (130-400); RBC Distribution Width 12.7 % (11.5-14.5); Red Blood Cell (RBC) Count 3.99 mill/uL (4.70-6.10); White Blood Cell (WBC) Count 5.7 thou/uL (4.8-10.8)
--- NOTE | 2020-08-15 08:57 | PDOC.HOSPP ---
- Subjective Encounter Date: 08/15/20 (f/u concern for stroke) Encounter Time: 08:55 Subjective: Pt admitted yesterday due to being unresponsive - rule out stroke. No overnight events. His NIH score and responsiveness have not changed overnight. This morning - pt able to answer simple questions and follow commands - he denies any pain. - Objective Vital Signs & Weight: Vital Signs (12 hours) Temp Pulse Resp BP Pulse Ox 08/15/20 07:42 97.8 F 75 16 178/85 H 92 L 08/15/20 04:29 97.7 F 08/15/20 04:00 100.4 F H 99 20 180/91 H 94 L 08/15/20 01:08 97.8 F 79 20 179/96 H 97 08/15/20 01:05 74 Weight Weight 233 lb 7.512 oz Result Diagrams: 08/15/20 07:28 08/14/20 14:06 Additional Labs: Accuchecks 08/14/20 13:03 POC Glucose 91 EKG Reviewed by me: Yes (tele - sinus 70-100's) Hospitalist ROS - Medication Medications: Active Medications Generic Name Dose Route Start Last Admin Trade Name Freq PRN Reason Stop Dose Admin Sodium Chloride 1,000 mls @ 100 mls/hr 08/14/20 17:45 08/15/20 04:36 Normal Saline 0.9% IV 1,000 mls .Q10H ANTONIO Administration Influenza Virus Vaccine Quadrival 240 mcg 08/15/20 09:00 08/15/20 08:54 Flu Vacc [id number](65yr Up)/Pf 240 Mcg/0.7 Ml Syringe IM 08/15/20 09:01 Not Given .ONCE ONE Pneumococcal Polyvalent Vaccine 0.5 ml 08/15/20 09:00 08/15/20 08:53 Pneumococcal 23 "Pneumovax" 0.5 Ml Vial IM 08/15/20 09:01 Not Given .ONCE ONE - Exam General Appearance: NAD General - other findings: able to follow commands Heart: RRR, no murmur Respiratory: CTAB, no wheezes, no rales, no ronchi Gastrointestinal: soft, non-tender, non-distended, normal bowel sounds Extremities: no cyanosis, no clubbing, no edema Neurological - other findings: unchanged - right sided deficits UE>LE, dysarthria Hosp A/P (1) Altered mental status Code(s): R41.82 - ALTERED MENTAL STATUS, UNSPECIFIED Status: Acute (2) Hematuria Code(s): R31.9 - HEMATURIA, UNSPECIFIED Status: Acute (3) Dyslipidemia Code(s): E78.5 - HYPERLIPIDEMIA, UNSPECIFIED Status: Chronic (4) Anemia Code(s): D64.9 - ANEMIA, UNSPECIFIED Status: Chronic Qualifiers: Anemia type: unspecified type Qualified Code(s): D64.9 - Anemia, unspecified (5) Fever Code(s): R50.9 - FEVER, UNSPECIFIED Status: Acute Qualifiers: Fever type: unspecified Qualified Code(s): R50.9 - Fever, unspecified (6) Carotid stenosis Code(s): I65.29 - OCCLUSION AND STENOSIS OF UNSPECIFIED CAROTID ARTERY Status: Chronic Qualifiers: Laterality: left Qualified Code(s): I65.22 - Occlusion and stenosis of left carotid artery (7) CVA, old, aphasia Code(s): I69.320 - APHASIA FOLLOWING CEREBRAL INFARCTION Status: Chronic (8) Dementia Code(s): F03.90 - UNSPECIFIED DEMENTIA WITHOUT BEHAVIORAL DISTURBANCE Status: Chronic (9) Hypertension Code(s): I10 - ESSENTIAL (PRIMARY) HYPERTENSION Status: Chronic - Plan Change in mentation - appears resolved with stable NIH score - TIA evaluation with MRI, Neurology consult, stroke team eval, echo - continue rectal aspirin - npo until eval by Speech due to failed bedside swallow - continue permissive hypertension - has right sided residual deficits from prior hemorrhagic stroke Fever - one time, blood cultures ordered - monitor - no indication for abx at this time Hematuria - recent UTI - will need outpatient f/u - hold pharmacologic dvt prophy hypertension - permissive hypertension due to concern for acute stroke Carotid stenosis - no acute surgical intervention by report from ER - will need outpatient monitoring Anemia - mild, monitor and outpatient eval dyslipidemia - resume statin when able to take PO pall care consult tomorrow for goals of care, complex decision making, family support dvt prophy - scd's gi prophy - not indicated - if remaining NPO after today, will initiate code status full by skilled nursing report reviewed plan of care with patient, nurse, and updated the patient's daughter by phone . no questions or further needs at end of eval. pt remains at high risk in current condition.
[2020-08-15] MEDS ORDERED: FLU VACC QS2020-21(65YR UP)/PF 240 MCG/0.7 ML SYRINGE IM ONE (09:00)
[2020-08-15 09:41] LABS: Anion Gap 11 mmol/L (10-20); BUN (Urea Nitrogen) 10 mg/dL (8.4-25.7); Calc. Creatinine Clearance 79 mL/min (70-130); Calcium 8.3 mg/dL (7.8-10.44); Carbon Dioxide 26 mmol/L (23-31); Chloride 111 mmol/L (98-107); Estimated GFR-MDRD 59; Glucose 78 mg/dL (83-110); Potassium 3.6 mmol/L (3.5-5.1); Sodium 144 mmol/L (136-145)
--- NOTE | 2020-08-15 10:30 | MRI ---
BRAIN MRI WITHOUT CONTRAST: HISTORY: Level 1 stroke. Left-sided weakness. COMPARISON: None. FINDINGS: Calvarial marrow signal intensity: Appropriate T1 signal. Gradient echo sequence: There is hemosiderin deposition involving the right frontal lobe, left deep g ray matter structures and scattered hypointensities in the right temporal lobe due to remote hemosiderin deposition. Additional areas of remote hemosiderin consider are noted in the right thala mus. No acute hemorrhage. Brain parenchyma: No mass, mass effect or midline shift. There is encephalomalacia and gliosis involv ing the right frontal lobe and left temporal lobe due to remote insult. Cortical leigh-white matter differentiation: With the exception of the left temporal lobe and right fr ontal lobe, cortical leigh-white matter differentiation is preserved. Restricted diffusion: Central arterial flow voids are maintained. Absent restricted diffusion. White matter signal intensities: T2, FLAIR white matter hyperintensities due to chronic small vessel ischemic changes. Sinuses: Mild mucosal thickening of the ethmoid air cells. IMPRESSION: Absent restricted diffusion. No acute infarct. Transcribed Date/Time: 08/15/2020 11:32 AM
[2020-08-15] MEDS: Saccharomyces boulardii 250 MG CAP PO SCH (11:12)
[2020-08-15 12:37] LABS: SARS-CoV-2 MS2 Positive; SARS-CoV-2 N Gene Negative; SARS-CoV-2 S Gene Negative; SARS-CoV-2 by NAA Not Detected (NotDetected); SARS-CoV-2 orf1ab Negative
[2020-08-15] MEDS ORDERED: Polyethylene Glycol 3350 17 GM Packet PO PRN (15:20)
--- NOTE | 2020-08-15 15:22 | PDOC.EVN ---
Event Note - Event Note Event Note: Pt evaluated by speech therapy and cleared for a modified diet. Will d/c IVF, change aspirin to oral, order home meds. MRI negative for acute process - will resume losartan.
[2020-08-15] MEDS ORDERED: Aspirin 300 MG Suppository PR SCH (16:00)
[2020-08-15] MEDS: Acetaminophen 650 MG/20.3 ML UDCUP PO PRN (16:09)
[2020-08-15] MEDS ORDERED: Aspirin 325 mg Enteric Coated Tablet PO SCH (18:00)
--- NOTE | 2020-08-15 18:28 | CON ---
DATE OF CONSULTATION: 08/15/2020 CONSULTING PHYSICIAN: Hospitalist Services. IMPRESSION: 1. Prior strokes with secondary dementia. 2. MRI ruled out any new ischemic event. PLAN: 1. Continue aspirin and a statin. 2. Return the patient to the long term. HISTORY OF PRESENT ILLNESS: Mr. Kaufman is a 75-year-old gentleman who came in from the long term. He apparently has suspected symptoms of possible stroke. Initial CT and CT angiogram did not show any significant changes. He had some areas of chronic ischemia bilaterally. He had an MRI of the brain done since admission, which failed to reveal any acute ischemic changes. The patient is unable to give me any history as to why he is here. PAST HISTORY: 1. Hypertension. 2. Stroke. 3. Dementia. ALLERGIES: CODEINE, GUAIFENESIN, ASPARTAME. SOCIAL HISTORY: No tobacco or alcohol use. FAMILY HISTORY: Not obtainable. REVIEW OF SYSTEMS: Ten-system review of systems is not obtainable due to his dementia. MEDICATIONS: List was reviewed. PHYSICAL EXAMINATION: GENERAL: He is a well-nourished elderly man, lying in bed, in no distress. VITAL SIGNS: Have been stable. He is afebrile. He is in a normal sinus rhythm. HEENT: Pupils equal and reactive. Conjunctivae clear. Oropharynx clear. NECK: Supple. No lymphadenopathy. CHEST: Clear. ABDOMEN: Soft and nontender. EXTREMITIES: Mild peripheral edema, but no cyanosis. SKIN: Clear. NEUROLOGIC: He was awake and cooperative. He would follow commands. His speech was fluent and clear. He was only oriented to person, but did not know his correct age. He had a right facial droop. He had good mainspring winder and oiler strength bilaterally. He had good symmetric lower extremity movement bilaterally. Sensation was altered and he seemed to have some extinction to touch. No abnormal movements were seen. IMAGING STUDIES: Reviewed. SUMMARY: This is an elderly man with history of prior strokes with dementia. He has no acute changes on his current scan. I would just continue antiplatelet therapy and a statin. He can return to the long term. Job ID: [id number]
[2020-08-15] MEDS: Atorvastatin Calcium 10 MG TAB PO SCH (20:20)
[2020-08-15] MEDS ORDERED: Losartan 25 MG TAB PO SCH (21:00)
--- NOTE | 2020-08-16 01:15 | PDOC.EVN ---
Event Note - Event Note Event Note: Nursing called, patient had short run asymptomatic SVT on monitor. VSS. Will check labs in am.
[2020-08-16 04:31] LABS: #Eosinphils 0.2 thou/uL (0.0-0.7); #Monocytes 0.4 thou/uL (0.11-0.59); #Neutrophils 2.8 thou/uL (1.40-6.50); %Basophils 0.9 % (0.0-1.0); %Eosinophils 4.3 % (0.0-10.0); %Lymphocytes 35.9 % (21.0-51.0); %Monocytes 7.8 % (0.0-10.0); %Neutrophils 51.2 % (42.0-75.0); Mean Corpuscular HGB CONC 33.8 g/dL (32.0-36.0); Mean Corpuscular Hemoglobin 31.4 pg (27.0-31.0); Mean Corpuscular Volume 92.7 fL (78.0-98.0); Mean Platelet Volume 7.6 fL (7.4-10.4); Platelet Count 166 thou/uL (130-400); RBC Distribution Width 12.6 % (11.5-14.5); Red Blood Cell (RBC) Count 3.83 mill/uL (4.70-6.10); White Blood Cell (WBC) Count 5.4 thou/uL (4.8-10.8)
[2020-08-16 04:57] LABS: Anion Gap 10 mmol/L (10-20); BUN (Urea Nitrogen) 8 mg/dL (8.4-25.7); Calc. Creatinine Clearance 84 mL/min (70-130); Calcium 8.3 mg/dL (7.8-10.44); Carbon Dioxide 26 mmol/L (23-31); Chloride 108 mmol/L (98-107); Estimated GFR-MDRD 64; Glucose 84 mg/dL (83-110); Magnesium 1.9 mg/dL (1.6-2.6); Potassium 3.3 mmol/L (3.5-5.1); Sodium 141 mmol/L (136-145)
[2020-08-16] MEDS: Losartan 25 MG TAB PO SCH ×2 (07:54→22:27)
[2020-08-16] MEDS: FLUoxetine HCl 20 MG CAP PO SCH (07:56)
[2020-08-16] MEDS: Saccharomyces boulardii 250 MG CAP PO SCH (07:58)
[2020-08-16] MEDS ORDERED: Aspirin 81 mg Enteric Coated Tablet PO SCH (09:00)
[2020-08-16] MEDS ORDERED: Amlodipine 5 MG TAB PO SCH ×3 (09:00→21:00)
[2020-08-16] MEDS: Acetaminophen 650 MG/20.3 ML UDCUP PO PRN (09:22)
[2020-08-16] MEDS ORDERED: cloNIDine 0.1 MG TAB PO PRN (10:26)
--- NOTE | 2020-08-16 10:29 | PDOC.HOSPP ---
- Subjective Encounter Date: 08/16/20 (f/u tia) Encounter Time: 10:27 Subjective: Pt c/o pain to the nurse earlier - was given tylenol. Overnight had a run of SVT with heart rates up to the 150's. Pt denies any pain or problems this morning. Is taking adequate PO per the nurse. - Objective Vital Signs & Weight: Vital Signs (12 hours) Temp Pulse Resp BP Pulse Ox 08/16/20 08:11 97.4 F L 65 14 210/99 H 96 08/16/20 04:00 68 18 183/95 H 08/15/20 23:46 70 18 182/93 H Weight Weight 233 lb 7.512 oz I&O: 08/15/20 08/16/20 08/17/20 06:59 06:59 06:59 Intake Total 1220 Balance 1220 Result Diagrams: 08/16/20 04:22 08/16/20 04:22 Additional Labs: cultures negative - both blood and urine EKG Reviewed by me: Yes (tele - sinus 60's, SVT to 150 - 18 beats) Hospitalist ROS - Medication Medications: Active Medications Generic Name Dose Route Start Last Admin Trade Name Freq PRN Reason Stop Dose Admin Acetaminophen 650 mg 08/15/20 15:28 08/16/20 09:22 Acetaminophen 650 Mg/20.3 Ml Udcup PO 650 mg Q6H PRN Administration Fever/Mild Pain Amlodipine Besylate 2.5 mg 08/16/20 09:00 08/16/20 07:54 Amlodipine 5 Mg Tab PO 2.5 mg DAILY ANTONIO Administration Atorvastatin Calcium 10 mg 08/15/20 21:00 08/15/20 20:20 Atorvastatin Calcium 10 Mg Tab PO 10 mg HS ANTONIO Administration Fluoxetine HCl 20 mg 08/16/20 09:00 08/16/20 07:56 Fluoxetine Hcl 20 Mg Cap PO 20 mg DAILY ANTONIO Administration Losartan Potassium 25 mg 08/16/20 09:00 08/16/20 07:54 Losartan 25 Mg Tab PO 25 mg BID ANTONIO Administration Saccharomyces Boulardii 250 mg 08/15/20 09:00 08/16/20 07:58 Saccharomyces Boulardii 250 Mg Cap PO 250 mg DAILY ANTONIO Administration - Exam General Appearance: NAD Heart: RRR, no murmur Respiratory: CTAB, no wheezes, no rales, no ronchi Gastrointestinal: soft, non-tender, non-distended Extremities: no cyanosis, no clubbing, no edema Neurological - other findings: unchanged - right sided deficits Psychiatric: normal affect Psychiatric - other findings: has been stable - alert, responds to questions and requests Hosp A/P (1) Altered mental status Code(s): R41.82 - ALTERED MENTAL STATUS, UNSPECIFIED Status: Resolved (2) Hematuria Code(s): R31.9 - HEMATURIA, UNSPECIFIED Status: Acute (3) Dyslipidemia Code(s): E78.5 - HYPERLIPIDEMIA, UNSPECIFIED Status: Chronic (4) Anemia Code(s): D64.9 - ANEMIA, UNSPECIFIED Status: Chronic Qualifiers: Anemia type: unspecified type Qualified Code(s): D64.9 - Anemia, unspecified (5) Fever Code(s): R50.9 - FEVER, UNSPECIFIED Status: Deleted Qualifiers: Fever type: unspecified Qualified Code(s): R50.9 - Fever, unspecified (6) Carotid stenosis Code(s): I65.29 - OCCLUSION AND STENOSIS OF UNSPECIFIED CAROTID ARTERY Status: Chronic Qualifiers: Laterality: left Qualified Code(s): I65.22 - Occlusion and stenosis of left carotid artery (7) CVA, old, aphasia Code(s): I69.320 - APHASIA FOLLOWING CEREBRAL INFARCTION Status: Chronic (8) Dementia Code(s): F03.90 - UNSPECIFIED DEMENTIA WITHOUT BEHAVIORAL DISTURBANCE Status: Chronic (9) Hypertension Code(s): I10 - ESSENTIAL (PRIMARY) HYPERTENSION Status: Chronic - Plan Change in mentation - appears resolved with stable NIH score - neg MRI - cleared by Neurology for discharge - is on aspirin (stopping - see below) and statin Fever - negative cultures, no recurrence, no antibiotics indicated Hematuria with worsening anemia - d/c aspirin - consult Urology - check FOBT for alternate explanation of worsening anemia hypertension - uncontrolled - with brief tachyarrhythmia - start metoprolol with hold parameters - add low dose amlodipine and titrate - increase losartan and bid Carotid stenosis - no acute surgical intervention by report from ER - will need outpatient monitoring dyslipidemia - continue statin pall care consult for goals of care, advance directive, family support dvt prophy - scd's gi prophy - not indicated code status full by [facility] report Discharge planning - when hemoglobin stable, evaluated by Urology, bp's improved/stable - anticipate at least 24 hours. reviewed plan of care with patient, nurse, and updated the patient's daughter by phone . . Addendum - pt's bp's remain elevated through the day and hydralazine not available. Changed to prn clonidine PO. amlodipine changed to 5 mg BID, losartan continued, and metoprolol initiated today. Titrate to goal around 140- 160 systolic.
--- NOTE | 2020-08-16 12:41 | PDOC.NEUPN ---
- Subjective Encounter Date: 08/16/20 Subjective: Patient awake and alert and follows commands intermittently. He refused EEG . Altered mental status resolved and is back to his baseline - Objective Vital Signs & Weight: Vital Signs (12 hours) Temp Pulse Resp BP Pulse Ox 08/16/20 10:19 184/94 H 08/16/20 09:06 195/95 H 08/16/20 08:11 97.4 F L 65 14 210/99 H 96 08/16/20 04:00 68 18 183/95 H Weight Weight 233 lb 7.512 oz I&O: 08/15/20 08/16/20 08/17/20 06:59 06:59 06:59 Intake Total 1220 Balance 1220 Result Diagrams: 08/16/20 04:22 08/16/20 04:22 Radiology Reviewed by me: Yes EKG Reviewed by me: Yes ROS - Review of Systems ROS unobtainable: due to mental status - Medication Medications: Active Medications Generic Name Dose Route Start Last Admin Trade Name Freq PRN Reason Stop Dose Admin Acetaminophen 650 mg 08/15/20 15:28 08/16/20 09:22 Acetaminophen 650 Mg/20.3 Ml Udcup PO 650 mg Q6H PRN Administration Fever/Mild Pain Amlodipine Besylate 2.5 mg 08/16/20 09:00 08/16/20 07:54 Amlodipine 5 Mg Tab PO 2.5 mg DAILY ANTONIO Administration Atorvastatin Calcium 10 mg 08/15/20 21:00 08/15/20 20:20 Atorvastatin Calcium 10 Mg Tab PO 10 mg HS ANTONIO Administration Clonidine 0.1 mg 08/16/20 10:26 08/16/20 10:58 Clonidine 0.1 Mg Tab PO 0.1 mg Q8H PRN Administration SBP Greater Than 180 Fluoxetine HCl 20 mg 08/16/20 09:00 08/16/20 07:56 Fluoxetine Hcl 20 Mg Cap PO 20 mg DAILY ANTONIO Administration Losartan Potassium 25 mg 08/16/20 09:00 08/16/20 07:54 Losartan 25 Mg Tab PO 25 mg BID ANTONIO Administration Saccharomyces Boulardii 250 mg 08/15/20 09:00 08/16/20 07:58 Saccharomyces Boulardii 250 Mg Cap PO 250 mg DAILY ANTONIO Administration - Exam General Appearance: awake alert Eye: PERRL ENT: normocephalic atraumatic Neck: supple Respiratory: CTAB Cardiovascular: RRR Gastrointestinal: soft Extremities: no cyanosis Skin: normal turgor Neurological: no new deficit Musculoskeletal: normal tone, no muscle wasting PSYCH: normal affect, normal behavior Results - Labs Result Diagrams: 08/16/20 04:22 08/16/20 04:22 Lab results: WBC 5.4 thou/uL (4.8-10.8) 08/16/20 04:22 Hgb 12.0 g/dL (14.0-18.0) L 08/16/20 04:22 Hct 35.5 % (42.0-52.0) L 08/16/20 04:22 MCV 92.7 fL (78.0-98.0) 08/16/20 04:22 Plt Count 166 thou/uL (130-400) 08/16/20 04:22 Neutrophils % 51.2 % (42.0-75.0) 08/16/20 04:22 Sodium 141 mmol/L (136-145) 08/16/20 04:22 Potassium 3.3 mmol/L (3.5-5.1) L 08/16/20 04:22 Chloride 108 mmol/L (98-107) H 08/16/20 04:22 Carbon Dioxide 26 mmol/L (23-31) 08/16/20 04:22 BUN 8 mg/dL (8.4-25.7) L 08/16/20 04:22 Creatinine 1.12 mg/dL (0.7-1.3) 08/16/20 04:22 Glucose 84 mg/dL (83-110) 08/16/20 04:22 Lactic Acid 1.2 mmol/L (0.5-2.2) 08/14/20 13:45 Calcium 8.3 mg/dL (7.8-10.44) 08/16/20 04:22 Total Bilirubin 1.1 mg/dL (0.2-1.2) 08/14/20 14:06 AST 25 U/L (5-34) 08/14/20 14:06 ALT 23 U/L (8-55) 08/14/20 14:06 Alkaline Phosphatase 103 U/L (40-110) 08/14/20 14:06 Creatine Kinase 54 U/L (30-200) 08/14/20 14:06 Troponin I 0.023 ng/mL (< 0.028) 08/14/20 13:05 Serum Total Protein 7.6 g/dL (5.8-8.1) 08/14/20 14:06 Albumin 3.4 g/dL (3.4-4.8) 08/14/20 14:06 Urine Ketones Trace mg/dL (Negative) A 08/14/20 15:55 Urine Blood 3+ (Negative) A 08/14/20 15:55 Urine Nitrite Negative (Negative) 08/14/20 15:55 Ur Leukocyte Esterase Negative Jenny/uL (Negative) 08/14/20 15:55 Urine RBC Greater than 50 HPF (0-3) A 08/14/20 15:55 Urine WBC 0-3 HPF (0-3) 08/14/20 15:55 Ur Squamous Epith Cells 0-3 HPF (0-3) 08/14/20 15:55 Urine Bacteria None Seen HPF (None Seen) 08/14/20 15:55 - Radiology Interpretation MRI - head Status: image reviewed by me, report reviewed by me Additional Comment: MRI brain reviewed and was negative for acute intracranial pathology. PN A/P (1) Altered mental status Code(s): R41.82 - ALTERED MENTAL STATUS, UNSPECIFIED Status: Resolved (2) Hematuria Code(s): R31.9 - HEMATURIA, UNSPECIFIED Status: Acute (3) Anemia Code(s): D64.9 - ANEMIA, UNSPECIFIED Status: Chronic Qualifiers: Anemia type: unspecified type Qualified Code(s): D64.9 - Anemia, unspecified (4) Carotid stenosis Code(s): I65.29 - OCCLUSION AND STENOSIS OF UNSPECIFIED CAROTID ARTERY Status: Chronic Qualifiers: Laterality: left Qualified Code(s): I65.22 - Occlusion and stenosis of left carotid artery (5) Dyslipidemia Code(s): E78.5 - HYPERLIPIDEMIA, UNSPECIFIED Status: Chronic (6) Acute kidney injury Code(s): N17.9 - ACUTE KIDNEY FAILURE, UNSPECIFIED Status: Acute (7) Generalized weakness Code(s): R53.1 - WEAKNESS Status: Acute (8) Pneumonia Code(s): J18.9 - PNEUMONIA, UNSPECIFIED ORGANISM Status: Acute (9) CVA, old, aphasia Code(s): 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 Altered mental status is now resolved and patient is back to his baseline. MRI of the brain reviewed and which was negative for acute intracranial pathol ogy. CTA of the neck did not reveal hemodynamically significant stenosis. EEG G attempted but patient refused to cooperate with the testing. CT of the head showed 50% stenosis of the left distal M1 segment. No neurosurgical intervention is needed per report. Neurochecks every 4 hours. 2D echocardiography showed ejection fraction 50 to 60%. No thrombus or PFO. Aspirin on hold secondary to anemia. Continue home medications. Telemetry Continue medical management per primary team. Plan discussed during MDR rounds and also with the primary attending Dr. Rozina Mendoza.
--- NOTE | 2020-08-16 12:48 | CON ---
DATE OF CONSULTATION: 08/16/2020 HISTORY OF PRESENT ILLNESS: This is a 75-year-old male, who I was asked to see because of microscopic hematuria. This is the second admission I think in a relatively short period of time. It looks like he was hospitalized for urinary tract infection and also has a history of having a prior hemorrhagic stroke. He was admitted two days ago with altered mental status, had repeat scans done of his head. Apparently showed nothing new to explain his altered mental status. I think since that time, his altered mental status has improved. I think he was felt to be anemic, although his hemoglobin was 12 this morning and it was 13.8 when he was admitted. I would not think that is too much of an issue. He has not had gross hematuria. He has not had a catheter in. His urinalysis two days ago showed 3+ blood, he had greater than 50 red cells per high-power field, no significant white cells or bacteria. He had a urine culture that was no growth. He had blood cultures that were no growth. I believe they were actually done because he had a fever when he came in. Looking at his vital signs for the last couple of days, his T-max on the was 100.4, that has really been it. He is COVID negative and his creatinine was normal. He does answer questions and seems like he is understanding what I am asking. He has not had any known history of prostate cancer. He does not recall any urinary tract infection, stone disease, or blood in his urine. Urinates into a diaper. Apparently, had a PEG tube in, but that was removed or pulled out by him in the not too distant past and apparently, he had been eating okay also. PAST MEDICAL HISTORY: Medical history apart from the strokes includes hypertension, hyperlipidemia, and stroke. He has had C. difficile before. He has reflux. He has some dementia. He apparently was COVID positive in the past. PHYSICAL EXAMINATION: His exam is abdomen is soft. The bladder is not distended. He is not circumcised. There is no phimosis. No lesions. The testicles are descended without mass or tenderness. He is in a diaper. Rectal exam was not done. IMPRESSION AND PLAN: Microscopic hematuria. I do not think this would explain any anemia, but the number of red cells that are present. However, we will go ahead and get a renal ultrasound as evaluation of upper tracts. Could consider doing a cysto, although I think I would wait a few weeks before we did anything like that with a recent stroke and change in mental status. It would be nice if he has family members around, I look for them in next visit. I did order an ultrasound to be done today or tomorrow. Job ID: [id number]
--- NOTE | 2020-08-16 15:29 | ULT ---
US Renal Bilateral STANDARD: 08/16/2020 12:15 PM CLINICAL HISTORY: Hematuria. STUDY: Renal ultrasound COMPARISON: None. FINDINGS: Evaluation on this is examination is limited secondary to bowel gas and the patient's large body habi tus. Right kidney: Echogenicity: Normal. Masses/cysts: None. Hydronephrosis: None. Calcifications: None. Length: 9.7 cm Left kidney: Echogenicity: Normal. Masses/cysts: None. Hydronephrosis: None. Calcifications: None. Length: 9.6 cm Limited visualization of the urinary bladder is unremarkable. IMPRESSION: Unremarkable limited renal ultrasound
[2020-08-16] MEDS: Metoprolol Tartrate 25 MG TAB PO SCH (22:26)
[2020-08-16] MEDS: Atorvastatin Calcium 10 MG TAB PO SCH (22:27)
[2020-08-17 05:02] LABS: #Eosinphils 0.2 thou/uL (0.0-0.7); #Lymphocytes 2.2 thou/uL (1.20-3.40); #Monocytes 0.5 thou/uL (0.11-0.59); #Neutrophils 3.3 thou/uL (1.40-6.50); %Basophils 0.7 % (0.0-1.0); %Eosinophils 3.3 % (0.0-10.0); %Monocytes 8.3 % (0.0-10.0); %Neutrophils 52.7 % (42.0-75.0); Hemoglobin 12.3 g/dL (14.0-18.0); Mean Corpuscular HGB CONC 33.3 g/dL (32.0-36.0); Mean Corpuscular Hemoglobin 30.7 pg (27.0-31.0); Mean Corpuscular Volume 92.2 fL (78.0-98.0); Platelet Count 175 thou/uL (130-400); RBC Distribution Width 12.8 % (11.5-14.5); Red Blood Cell (RBC) Count 3.99 mill/uL (4.70-6.10); White Blood Cell (WBC) Count 6.2 thou/uL (4.8-10.8)
[2020-08-17 05:31] LABS: Anion Gap 13 mmol/L (10-20); BUN (Urea Nitrogen) 11 mg/dL (8.4-25.7); Calc. Creatinine Clearance 80 mL/min (70-130); Calcium 8.9 mg/dL (7.8-10.44); Carbon Dioxide 23 mmol/L (23-31); Chloride 107 mmol/L (98-107); Estimated GFR-MDRD 60; Glucose 87 mg/dL (83-110); Iron 62 ug/dL (65-175); Potassium 3.5 mmol/L (3.5-5.1); Sodium 139 mmol/L (136-145)
[2020-08-17 05:52] LABS: Ferritin 179.4 ng/mL (22-322)
[2020-08-17] MEDS: Losartan 25 MG TAB PO SCH ×2 (09:39→23:16)
[2020-08-17] MEDS: Metoprolol Tartrate 25 MG TAB PO SCH ×2 (09:39→23:16)
[2020-08-17] MEDS: FLUoxetine HCl 20 MG CAP PO SCH (09:39)
[2020-08-17] MEDS: Amlodipine 5 MG TAB PO SCH ×2 (09:39→23:15)
[2020-08-17] MEDS: Saccharomyces boulardii 250 MG CAP PO SCH (09:39)
--- NOTE | 2020-08-17 11:58 | PDOC.HOSPP ---
- Subjective Encounter Date: 08/17/20 Encounter Time: 10:00 Subjective: Patient seen and examined for encephalopathy. Currently being evaluated by neurology for altered mentation and urology for gross hematuria. MRI negative for acute CVA. - Objective Vital Signs & Weight: Vital Signs (12 hours) Temp Pulse Resp BP BP Pulse Ox 08/17/20 11:32 97.4 F L 62 20 144/75 H 94 L 08/17/20 09:39 60 176/91 H 08/17/20 07:39 97.7 F 60 20 176/91 H 94 L 08/17/20 04:00 97.6 F 63 18 175/86 H 95 08/17/20 00:00 98.2 F 59 L 17 157/82 H 97 Weight Admit Weight 233 lb 7.504 oz Weight 233 lb 7.504 oz I&O: 08/16/20 08/17/20 08/18/20 06:59 06:59 06:59 Intake Total 1220 340 Balance 1220 340 Result Diagrams: 08/17/20 04:34 08/17/20 04:34 Radiology Reviewed by me: Yes (MRI brainnegative for acute CVA) EKG Reviewed by me: Yes (Sinus rhythm on telemetry) Hospitalist ROS - Review of Systems ROS unobtainable: due to mental status - Medication Medications: Active Medications Generic Name Dose Route Start Last Admin Trade Name Freq PRN Reason Stop Dose Admin Acetaminophen 650 mg 08/15/20 15:28 08/16/20 09:22 Acetaminophen 650 Mg/20.3 Ml Udcup PO 650 mg Q6H PRN Administration Fever/Mild Pain Amlodipine Besylate 5 mg 08/17/20 09:00 08/17/20 09:39 Amlodipine 5 Mg Tab PO 5 mg BID ANTONIO Administration Atorvastatin Calcium 10 mg 08/15/20 21:00 08/16/20 22:27 Atorvastatin Calcium 10 Mg Tab PO 10 mg HS ANTONIO Administration Clonidine 0.1 mg 08/16/20 10:26 08/16/20 10:58 Clonidine 0.1 Mg Tab PO 0.1 mg Q8H PRN Administration SBP Greater Than 180 Fluoxetine HCl 20 mg 08/16/20 09:00 08/17/20 09:39 Fluoxetine Hcl 20 Mg Cap PO 20 mg DAILY ANTONIO Administration Losartan Potassium 25 mg 08/16/20 09:00 08/17/20 09:39 Losartan 25 Mg Tab PO 25 mg BID ANTONIO Administration Metoprolol Tartrate 25 mg 08/16/20 21:00 08/17/20 09:39 Metoprolol Tartrate 25 Mg Tab PO 25 mg BID ANTONIO Administration Saccharomyces Boulardii 250 mg 08/15/20 09:00 08/17/20 09:39 Saccharomyces Boulardii 250 Mg Cap PO 250 mg DAILY ANTONIO Administration - Exam General Appearance: NAD Heart: RRR, no gallops Respiratory: no wheezes, no ronchi Gastrointestinal: soft, non-tender, normal bowel sounds Extremities: no cyanosis Neurological: no new deficit Hosp A/P - Plan DVT proph w/SCDs 75-year-old male admitted on August 17 with altered mentation. He was recently admitted at this facility for UTI. MRI of the brain was negative for acute CVA. His echocardiogram showed ejection fraction 50 to 60% with normal chamber size. He declined EEG. Patient developed gross hematuria and was evaluated by urology. Antiplatelet are on hold. Renal ultrasound was negative for obstructive uropathy. Impression: Toxic metabolic encephalopathymultifactorial Gross hematuriaantiplatelets on hold Hypertensionnot well controlled. Blood pressure this morning 176/91 Low-grade feverno new recurrence over the past 48 hours History of recent C. 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 Aspirin on hold. Amlodipine dose increased. Rosa nue losartan with metoprolol. Continue physical therapy and Occupational Therapy. Probably discharge in 24 hours if okay with urology and blood pressure stable. Recheck labs in a.m.
--- NOTE | 2020-08-17 15:47 | PRG ---
DATE OF SERVICE: 08/17/2020 This patient was seen at lunchtime today. I cannot find that he has had any gross hematuria. He has not produced urine today. Yesterday, his diapers were wet, but the urine was not bloody. His urinalysis showed some microscopic hematuria. His urine culture was negative. Renal ultrasound yesterday did not reveal any renal mass, stone, or hydronephrosis. I talked with the patient's daughter, Mavis Kaufman today by phone. I told that normally we would look at doing a cystoscopic exam at some point on a patient with microscopic hematuria and certainly could be done with her dad. I do not think it should be done currently. I think we should wait a few weeks, let him get through rehab, which apparently he was doing better at [facility] before he had the setback that brought him into the hospital. So, I would look at maybe in late August, September bringing him into the office for a flexible cystoscopic exam to make sure he does not have any bladder lesions causing a little bit of blood in his urine. So for the time being, we do not find anything significant short of the cystoscopic exam being done. It does not appear he is having gross hematuria, just microscopic and he does not have an infection, so I will sign off on him and my office will look at getting set up to see him as an outpatient in a few weeks. Job ID: [id number]
[2020-08-17] MEDS: Atorvastatin Calcium 10 MG TAB PO SCH (23:15)
[2020-08-17] MEDS: Senokot S 8.6-50 MG TAB PO SCH (23:15)
[2020-08-18 06:49] LABS: #Basophils 0.1 thou/uL (0.0-0.2); #Eosinphils 0.3 thou/uL (0.0-0.7); #Lymphocytes 2.2 thou/uL (1.20-3.40); #Monocytes 0.6 thou/uL (0.11-0.59); #Neutrophils 3.2 thou/uL (1.40-6.50); %Eosinophils 4.3 % (0.0-10.0); %Lymphocytes 34.3 % (21.0-51.0); %Monocytes 9.6 % (0.0-10.0); %Neutrophils 50.8 % (42.0-75.0); Hemoglobin 12.7 g/dL (14.0-18.0); Mean Corpuscular HGB CONC 33.8 g/dL (32.0-36.0); Mean Corpuscular Hemoglobin 31.4 pg (27.0-31.0); Mean Platelet Volume 7.7 fL (7.4-10.4); Platelet Count 174 thou/uL (130-400); Red Blood Cell (RBC) Count 4.04 mill/uL (4.70-6.10); White Blood Cell (WBC) Count 6.4 thou/uL (4.8-10.8)
[2020-08-18 07:12] LABS: Anion Gap 11 mmol/L (10-20); BUN (Urea Nitrogen) 13 mg/dL (8.4-25.7); Calc. Creatinine Clearance 77 mL/min (70-130); Calcium 8.7 mg/dL (7.8-10.44); Carbon Dioxide 25 mmol/L (23-31); Chloride 107 mmol/L (98-107); Estimated GFR-MDRD 57; Glucose 91 mg/dL (83-110); Magnesium 1.9 mg/dL (1.6-2.6); Phosphorus 2.6 mg/dL (2.3-4.7); Potassium 3.6 mmol/L (3.5-5.1); Sodium 139 mmol/L (136-145)
[2020-08-18] MEDS: FLUoxetine HCl 20 MG CAP PO SCH (09:47)
[2020-08-18] MEDS: Senokot S 8.6-50 MG TAB PO SCH ×2 (09:47→23:34)
[2020-08-18] MEDS: Saccharomyces boulardii 250 MG CAP PO SCH (09:47)
[2020-08-18] MEDS: Amlodipine 5 MG TAB PO SCH ×2 (09:47→23:34)
[2020-08-18] MEDS: Losartan 25 MG TAB PO SCH ×2 (09:49→23:34)
[2020-08-18] MEDS: Metoprolol Tartrate 25 MG TAB PO SCH ×2 (09:49→23:36)
--- NOTE | 2020-08-18 16:49 | PDOC.HOSPP ---
- Subjective Encounter Date: 08/18/20 Encounter Time: 16:40 Subjective: f/u for encephalopathy likely multifactorial and now resolving. Hematuria resolving after d/c of antiplatelets. No new issues reported per nursing. - Objective Vital Signs & Weight: Vital Signs (12 hours) Temp Pulse Pulse Pulse Resp BP BP 08/18/20 15:52 97.7 F 61 18 08/18/20 13:50 62 55 L 141/82 H 08/18/20 11:52 97.6 F 57 L 18 08/18/20 09:47 62 145/76 H 08/18/20 08:49 08/18/20 07:49 98.4 F 62 18 BP BP Pulse Ox 08/18/20 15:52 128/71 96 08/18/20 13:50 130/71 08/18/20 11:52 134/68 95 08/18/20 09:47 08/18/20 08:49 94 L 08/18/20 07:49 149/72 H 94 L Weight Admit Weight 233 lb 7.504 oz Weight 233 lb 7.504 oz I&O: 08/17/20 08/18/20 08/19/20 06:59 06:59 06:59 Intake Total 340 Balance 340 Result Diagrams: 08/18/20 06:38 08/18/20 06:38 Additional Labs: Microbiology 08/17/20 Unknown Stool Stool Occult Blood (ADAIR) - Final 08/14/20 15:55 Urine Straight Catheter Urine Culture - Final NO GROWTH AT 36 HOURS 08/15/20 07:28 Venous blood - Right Hand Blood Culture - Preliminary NO GROWTH AT 48 HOURS 08/15/20 07:28 Venous blood - Left Hand Blood Culture - Preliminary NO GROWTH AT 48 HOURS Laboratory Tests 08/14/20 08/15/20 08/16/20 15:34 04:39 04:22 Potassium 3.3 L Iron Triglycerides 61 Cholesterol 86 LDL Cholesterol, Calc 44 HDL Cholesterol 30 Vitamin B12 Folate TSH 3rd Generation SARS-CoV-2 (PCR) Not Detected 08/16/20 08/17/20 08/17/20 04:22 04:34 04:34 Potassium Iron 62 L Triglycerides Cholesterol LDL Cholesterol, Calc HDL Cholesterol Vitamin B12 424 Folate TSH 3rd Generation 1.2875 SARS-CoV-2 (PCR) 08/17/20 04:34 Potassium Iron Triglycerides Cholesterol LDL Cholesterol, Calc HDL Cholesterol Vitamin B12 Folate 13.40 TSH 3rd Generation SARS-CoV-2 (PCR) Radiology Reviewed by me: Yes (Echo - EF 50-60%, technically limited exam) EKG Reviewed by me: Yes (Tele - SR) Hospitalist ROS - Medication Medications: Active Medications Generic Name Dose Route Start Last Admin Trade Name Freq PRN Reason Stop Dose Admin Acetaminophen 650 mg 08/15/20 15:28 08/16/20 09:22 Acetaminophen 650 Mg/20.3 Ml Udcup PO 650 mg Q6H PRN Administration Fever/Mild Pain Amlodipine Besylate 5 mg 08/17/20 09:00 08/18/20 09:47 Amlodipine 5 Mg Tab PO 5 mg BID ANTONIO Administration Atorvastatin Calcium 10 mg 08/15/20 21:00 08/17/20 23:15 Atorvastatin Calcium 10 Mg Tab PO 10 mg HS ANTONIO Administration Clonidine 0.1 mg 08/16/20 10:26 08/16/20 10:58 Clonidine 0.1 Mg Tab PO 0.1 mg Q8H PRN Administration SBP Greater Than 180 Fluoxetine HCl 20 mg 08/16/20 09:00 08/18/20 09:47 Fluoxetine Hcl 20 Mg Cap PO 20 mg DAILY ANTONIO Administration Losartan Potassium 25 mg 08/16/20 09:00 08/18/20 09:49 Losartan 25 Mg Tab PO 25 mg BID ANTONIO Administration Metoprolol Tartrate 25 mg 08/16/20 21:00 08/18/20 09:49 Metoprolol Tartrate 25 Mg Tab PO 25 mg BID ANTONIO Administration Saccharomyces Boulardii 250 mg 08/15/20 09:00 08/18/20 09:47 Saccharomyces Boulardii 250 Mg Cap PO 250 mg DAILY ANTONIO Administration Senna/Docusate Sodium 2 tab 08/17/20 21:00 08/18/20 09:47 Senokot S 8.6-50 Mg Tab PO 2 tab BID ANTONIO Administration - Exam General Appearance: NAD, awake alert General - other findings: non-verbal, nods head to questions Eye: PERRL, anicteric sclera ENT: normocephalic atraumatic, no oropharyngeal lesions Neck: supple, symmetric, no JVD, no thyromegaly, no lymphadenopathy Heart: RRR, no gallops, no rubs, normal peripheral pulses Heart - other findings: S1, S2 Respiratory: CTAB, no wheezes, no rales, no ronchi, normal chest expansion, no tachypnea Gastrointestinal: soft, non-tender, non-distended, normal bowel sounds, no palpable masses Extremities: no cyanosis, no clubbing, no edema Skin: normal turgor Neurological: no new deficit Neurological - other findings: non-verbal, nods head to questions, R hemiplegia Musculoskeletal: generalized weakness Psychiatric: oriented to person, flat affect Hosp A/P (1) Toxic metabolic encephalopathy Code(s): G92 - TOXIC ENCEPHALOPATHY Status: Acute Plan: Multifactorial, appears to have resolved, supportive mgmt (2) Hematuria Code(s): R31.9 - HEMATURIA, UNSPECIFIED Status: Acute Plan: no recurrence, may be candidate for outpt cystoscopy (3) Acute kidney injury Code(s): N17.9 - ACUTE KIDNEY FAILURE, UNSPECIFIED Status: Acute Plan: mild, resolving, serial creatinine (4) Generalized weakness Code(s): R53.1 - WEAKNESS Status: Chronic Plan: s/p CVA with R hemiplegia, outpt PT/OT (5) CVA, old, aphasia Code(s): I69.320 - APHASIA FOLLOWING CEREBRAL INFARCTION Status: Chronic (6) Dementia Code(s): F03.90 - UNSPECIFIED DEMENTIA WITHOUT BEHAVIORAL DISTURBANCE Status: Chronic - Plan PT/OT, social services technician, speech therapy, DVT proph w/SCDs Stable overall Continue home BP regimen Plan for outpt cystoscopy Limit sedating/pain meds PT/OT manager intermediate Likely d/c in 24h
[2020-08-18] MEDS: Atorvastatin Calcium 10 MG TAB PO SCH (23:34)
[2020-08-19] MEDS: Senokot S 8.6-50 MG TAB PO SCH (09:36)
[2020-08-19] MEDS: Saccharomyces boulardii 250 MG CAP PO SCH (09:36)
[2020-08-19] MEDS: Amlodipine 5 MG TAB PO SCH (09:36)
[2020-08-19] MEDS: FLUoxetine HCl 20 MG CAP PO SCH (09:37)
[2020-08-19] MEDS: Metoprolol Tartrate 25 MG TAB PO SCH (09:37)
[2020-08-19] MEDS: Losartan 25 MG TAB PO SCH (09:38)
--- NOTE | 2020-08-19 10:04 | PDOC.PALPN ---
Palliative Progress Note - Subjective Lethargic, moans but does not open eyes or provide significant response. Plan to discharge today - Objective Vital Signs: Vital Signs - Most Recent Temp Pulse Resp BP Pulse Ox 97.6 F 62 26 H 168/81 H 90 L 08/19/20 07:45 08/19/20 09:36 08/19/20 07:45 08/19/20 09:36 08/19/20 07:45 - Physical Exam Constitutional: NAD, encephalitic, ill appearing HEENT: sclera anicteric Respiratory: no wheezing, unlabored breathing Cardiovascular: RRR Gastrointestinal: soft, non-tender, positive bowel sounds Genitourinary: incontinent Musculoskeletal: no edema, pulses present Skin: cap refill <2 seconds, normal turgor, fragile Psychiatric: flat affect - Assessment (1) Palliative care encounter Code(s): Z51.5 - ENCOUNTER FOR PALLIATIVE CARE Status: Acute (2) Acute kidney injury Code(s): N17.9 - ACUTE KIDNEY FAILURE, UNSPECIFIED Status: Acute (3) Hematuria Code(s): R31.9 - HEMATURIA, UNSPECIFIED Status: Acute (4) Toxic metabolic encephalopathy Code(s): G92 - TOXIC ENCEPHALOPATHY Status: Acute (5) Anemia Code(s): D64.9 - ANEMIA, UNSPECIFIED Status: Chronic Qualifiers: Anemia type: unspecified type Qualified Code(s): D64.9 - Anemia, unspecified (6) CVA, old, aphasia Code(s): I69.320 - APHASIA FOLLOWING CEREBRAL INFARCTION Status: Chronic - Plan Plan: Palliative Care has communicated with patient daughter Mavis via phone [phone]. Will continue to discuss disease trajectory and natural decline. Family hopeful for improvement with OT/PT and follow up with Urology. Continue with full resuscitation and aggressive measures. [35] minutes spent on this encounter with >50% of the time in counseling and coordination of care. - ROS Non Response: due to mental status
--- NOTE | 2020-08-19 10:38 | DIS ---
DATE OF ADMISSION: 08/14/2020 DATE OF DISCHARGE: 08/19/2020 DISCHARGE DIAGNOSES: 1. Toxic metabolic encephalopathy, multifactorial, resolving. 2. Gross hematuria, resolved. 3. Acute kidney injury, resolved. 4. Generalized weakness. 5. Status post CVA with right hemiparesis. 6. 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 7. Dementia. CONSULTATIONS: 1. Dr. Toney Nguyen with Urology Service. 2. Dr. Reina with Neurology Service. PERTINENT LABORATORY AND X-RAY FINDINGS: Potassium ranged between 3.3 to 4.0, creatinine ranged between 1.12 to 1.23, estimated GFR ranged between 57 to 64, lactic acid level 1.2, phosphorus level 2.6, magnesium level 1.9, serum iron 62, ferritin 179, total cholesterol 86, triglyceride 61, HDL 30, LDL 44. Vitamin B12 level 424. Folate level 13.4. TSH 1.29. CBC showed a hemoglobin ranging between 12.0 to 13.8. INR 1.1 on 08/14/2020. COVID-19 PCR not detected on 08/14/2020. Blood cultures x2 dated 08/15/2020 showed no growth at 48 hours. Urine culture dated 08/14/2020 showed no growth at 36 hours. Stool Hemoccult dated 08/17/[address] of the brain without contrast dated 08/14/2020 showed no acute interval change when compared with previous CT imaging 07/26/2020. Old left-sided infarct with encephalomalacia in the left temporal lobe distribution. CT angiogram of the head and neck dated 08/14/2020 showed luminal narrowing at the distal left M1 segment. No hemodynamically significant stenosis. MRI of the brain dated 08/15/2020 showed no acute infarct. 2D transthoracic echocardiogram dated on 08/15/2020 showed technically-limited exam with suboptimal imaging. Ejection fraction estimated 50% to 60%. Bilateral renal ultrasound dated 08/16/2020 showed negative exam. HOSPITAL COURSE: The patient was initially admitted after presenting with altered mentation in the context of known prior CVA with right hemiparesis with recent hospitalization for urinary tract infection. The patient underwent initial evaluation in the emergency room including CT of the brain showing no acute process. The patient initially received aspirin, metoprolol IV, and placed on the Stroke Unit for potential stroke rule out. MRI imaging of the brain was obtained showing no evidence of an acute infarct and the patient was evaluated by the Neurology Service without specific recommendations for any further workup and continue secondary prevention. The patient was also noted with hematuria during the hospital course with Urology consultation obtained. No specific intervention was recommended as the patient's hematuria improved and resolved with discontinuation of antiplatelet therapy. Recommendations are for outpatient cystoscopy after discharge. Overall, the patient did remain clinically stable during the hospital course with titration of his blood pressure regimen for more optimal control. The patient tolerated regular oral intake and overall had stable vital signs. I have examined the patient at the time of discharge and discussed followup instructions. The patient is ready for discharge on 08/19/2020. DISCHARGE MEDICATIONS: 1. Losartan 25 mg p.o. at bedtime. 2. Hydrocortisone 1 application topically b.i.d. 3. MiraLAX 17 g p.o. daily p.r.n. 4. Lipitor 10 mg p.o. daily. 5. Nystatin powder 1 application topically t.i.d. 6. Prozac 20 mg p.o. daily. 7. Ventolin HFA 2 puffs inhaled q.6 hours p.r.n. 8. Florastor 250 mg p.o. daily. 9. Lopressor 25 mg p.o. b.i.d. 10. Amlodipine 5 mg p.o. b.i.d. 11. Tessalon Perles 100 mg p.o. b.i.d. p.r.n. 12. Enteric-coated aspirin 81 mg p.o. daily. FOLLOWUP: The patient may follow up with his primary care provider, Dr. Wayne Zurita. The patient is to follow up with Dr. Toney Nguyen with Urology Service and to call his office for appointment time and date. CONDITION ON DISCHARGE: Fair. ACTIVITY: Ad-aishwarya. DIET: Heart healthy. CODE STATUS: Full. DISPOSITION: Discharged to [facility] on 08/19/2020. TIME SPENT: Total time preparing and coordinating discharge, 33 minutes. Job ID: [id number]
[2020-08-19 14:48] VITALS: BP 156/75; TEMP 97.9
== END 2020-08-19 17:48 | DRG 92 ==
LOC: ERS 12:59 → 2SE 15:14
PROVIDERS: ADMIT Family Medicine; ATTEND Family Medicine
DX: G92 Toxic encephalopathy (principal); N17.9 Acute kidney failure, unspecified; I69.351 Hemiplegia and hemiparesis following cerebral infarction affecting right dominant side; I16.1 Hypertensive emergency; Z20.828 Contact with and (suspected) exposure to other viral communicable diseases; R31.0 Gross hematuria; R53.1 Weakness; E78.5 Hyperlipidemia, unspecified; D64.9 Anemia, unspecified; F03.90 Unspecified dementia, unspecified severity, without behavioral disturbance, psychotic disturbance, mood disturbance, and anxiety; K21.9 Gastro-esophageal reflux disease without esophagitis; I10 Essential (primary) hypertension; R50.9 Fever, unspecified; I65.22 Occlusion and stenosis of left carotid artery; I69.320 Aphasia following cerebral infarction; Z88.5 Allergy status to narcotic agent; Z88.8 Allergy status to other drugs, medicaments and biological substances; Z86.19 Personal history of other infectious and parasitic diseases
CPT/HCPCS: 36415; 36416; 51701; 70450; 70496; 70498; 70551; 71045; 76770; 80048; 80053; 80061; 81003; 81015; 82274; 82550; 82607; 82728; 82746; 83540; 83605; 83735; 84100; 84443; 84484; 85025; 85610; 85730; 87040; 87086; 87635; 93005; 93306; 94760; 96374; Q9967; U0003

== ENCOUNTER 2020-08-24 16:29 | Emergency (ER) | payer MEDICARE, BC, OTHER ==
[2020-08-24 17:12] LABS: #Basophils 0.1 thou/uL (0.0-0.2); #Eosinphils 0.3 thou/uL (0.0-0.7); #Lymphocytes 2.3 thou/uL (1.20-3.40); #Monocytes 0.7 thou/uL (0.11-0.59); #Neutrophils 6.4 thou/uL (1.40-6.50); %Basophils 0.5 % (0.0-1.0); %Eosinophils 3.5 % (0.0-10.0); %Lymphocytes 23.5 % (21.0-51.0); %Monocytes 7.6 % (0.0-10.0); %Neutrophils 64.9 % (42.0-75.0); Hemoglobin 14.1 g/dL (14.0-18.0); Mean Corpuscular HGB CONC 34.2 g/dL (32.0-36.0); Mean Corpuscular Hemoglobin 31.9 pg (27.0-31.0); Mean Corpuscular Volume 93.3 fL (78.0-98.0); Mean Platelet Volume 8.1 fL (7.4-10.4); Platelet Count 214 thou/uL (130-400); RBC Distribution Width 13.2 % (11.5-14.5); Red Blood Cell (RBC) Count 4.42 mill/uL (4.70-6.10); White Blood Cell (WBC) Count 9.8 thou/uL (4.8-10.8)
[2020-08-24 17:30] LABS: ALT (SGPT) 41 U/L (8-55); AST (SGOT) 26 U/L (5-34); Albumin 3.9 g/dL (3.4-4.8); Alkaline Phosphatase 138 U/L (40-110); Anion Gap 16 mmol/L (10-20); BUN (Urea Nitrogen) 31 mg/dL (8.4-25.7); CK (CPK) 40 U/L (30-200); Calc. Creatinine Clearance 0 mL/min (70-130); Calcium 9.4 mg/dL (7.8-10.44); Carbon Dioxide 26 mmol/L (23-31); Chloride 103 mmol/L (98-107); Estimated GFR-MDRD 31; Globulin 4.5 g/dL (2.4-3.5); Glucose 122 mg/dL (83-110); Protein, Total 8.4 g/dL (5.8-8.1); Sodium 141 mmol/L (136-145)
--- NOTE | 2020-08-24 17:31 | RAD ---
PORTABLE CHEST: 08/24/20 HISTORY: Lethargic. COMPARISON: 08/14/20. The lungs appear clear. No evidence of infiltrate or vascular congestion. Mild cardiomegaly is stable . No interval change. IMPRESSION: No acute finding. POS: AGW
[2020-08-24 17:33] LABS: Bacteria/HPF None Seen HPF (None Seen); Bilirubin Negative (Negative); Blood, Urine Trace (Negative); Clarity Clear (Clear); Glucose, Urine (Dipstick) Normal (Negative); Ketone, Urine Negative (Negative); Leukocyte Negative Leu/uL (Negative); Nitrite Negative (Negative); Protein, Urine (Dipstick) 50 mg/dL (Neg-Trace); RBC/HPF 0-3 HPF (0-3); Specific Gravity, Urine 1.026 (1.002-1.036); Squamous Epithelial None Seen HPF (0-3); Urobilinogen Normal mg/dL (Less than 2); WBC/HPF None Seen HPF (0-3); pH, Urine 5.5 (5.0-9.0)
--- NOTE | 2020-08-24 18:31 | CT ---
+CT HEAD WITHOUT CONTRAST: 08/24/20 INDICATIONS: Mental status change. Comparison made to head CT of 08/14/20. FINDINGS: Cortical atrophy and chronic ischemic white matter changes are again noted. Encephalomalacia in the l eft temporal lobe is again noted and was described previously. No evidence of acute mass, hemorrhage, or infarct. No interval change from the recent exam. IMPRESSION: Stable head CT. No acute interval change. POS: AGW
== END 2020-08-24 20:47 ==
LOC: ERS 16:29
DX: E86.0 Dehydration (principal); Z86.73 Personal history of transient ischemic attack (TIA), and cerebral infarction without residual deficits; K21.9 Gastro-esophageal reflux disease without esophagitis; I10 Essential (primary) hypertension; F41.9 Anxiety disorder, unspecified
CPT/HCPCS: 36415; 51701; 70450; 71045; 80053; 81003; 81015; 82550; 84484; 85025; 93005

== ENCOUNTER 2020-09-03 13:39 | Inpatient (IN) | payer MEDICARE, BC, OTHER ==
--- NOTE | 2020-09-03 14:50 | RAD ---
Chest AP view INDICATION: Decreased mental status COMPARISON: Prior exam dated August 24, 2020 FINDINGS: Lungs: The lungs are clear Cardiac silhouette: Stable moderate cardiomegaly Pulmonary vasculature: Normal Pleural spaces: No pleural effusion or pneumothorax is demonstrated. Upper abdomen: No abnormality seen. Osseous structures: Possible bone Additional findings: None. IMPRESSION: Stable cardiomegaly
--- NOTE | 2020-09-03 15:02 | CT ---
CT OF BRAIN PERFORMED WITHOUT CONTRAST ENHANCEMENT: 09/03/20 HISTORY: Altered mental status. There is marked generalized ventricular and sulcal prominence. There is severe chronic ischemic white matter change. Encephalomalacia change in the left temporal and frontal region is a stable finding. No hemorrhage or mass effect. Some ex vacuo dilatation of the left lateral ventricles is a stable fin ding. Mastoid air cells and visualized sinuses are clear. IMPRESSION: No acute intracranial abnormalities, stable overall exam. Severe atrophy and chronic white matter mireya nge. Encephalomalacia change in left middle cerebral artery distribution. POS: MARTIR
[2020-09-03 15:16] LABS: #Basophils 0.1 thou/uL (0.0-0.2); #Eosinphils 0.1 thou/uL (0.0-0.7); #Lymphocytes 2.4 thou/uL (1.20-3.40); #Neutrophils 5.5 thou/uL (1.40-6.50); %Basophils 0.8 % (0.0-1.0); %Eosinophils 1.3 % (0.0-10.0); %Lymphocytes 26.4 % (21.0-51.0); %Monocytes 10.9 % (0.0-10.0); %Neutrophils 60.6 % (42.0-75.0); Hemoglobin 13.4 g/dL (14.0-18.0); Mean Corpuscular HGB CONC 33.4 g/dL (32.0-36.0); Mean Corpuscular Hemoglobin 31.6 pg (27.0-31.0); Mean Corpuscular Volume 94.7 fL (78.0-98.0); Mean Platelet Volume 8.6 fL (7.4-10.4); Platelet Count 183 thou/uL (130-400); RBC Distribution Width 13.2 % (11.5-14.5); Red Blood Cell (RBC) Count 4.23 mill/uL (4.70-6.10); White Blood Cell (WBC) Count 9.1 thou/uL (4.8-10.8)
[2020-09-03 15:41] LABS: ALT (SGPT) 15 U/L (8-55); AST (SGOT) 12 U/L (5-34); Albumin 3.4 g/dL (3.4-4.8); Alkaline Phosphatase 113 U/L (40-110); Anion Gap 15 mmol/L (10-20); BUN (Urea Nitrogen) 52 mg/dL (8.4-25.7); Bilirubin, Total 0.9 mg/dL (0.2-1.2); CK (CPK) 39 U/L (30-200); Calc. Creatinine Clearance 0 mL/min (70-130); Calcium 8.9 mg/dL (7.8-10.44); Carbon Dioxide 25 mmol/L (23-31); Chloride 111 mmol/L (98-107); Estimated GFR-MDRD 31; Globulin 4.2 g/dL (2.4-3.5); Glucose 101 mg/dL (83-110); Lipase 19 U/L (8-78); Potassium 3.5 mmol/L (3.5-5.1); Protein, Total 7.6 g/dL (5.8-8.1); Sodium 147 mmol/L (136-145)
[2020-09-03 16:05] LABS: CKMB 1.4 ng/mL (0-6.6)
[2020-09-03 16:05] LABS: Bilirubin Negative (Negative); Blood, Urine 1+ (Negative); Clarity Turbid (Clear); Glucose, Urine (Dipstick) Normal (Negative); Ketone, Urine Negative (Negative); Leukocyte Negative Leu/uL (Negative); Nitrite Negative (Negative); Protein, Urine (Dipstick) 50 mg/dL (Neg-Trace); RBC/HPF Greater than 50 HPF (0-3); Specific Gravity, Urine 1.027 (1.002-1.036); Squamous Epithelial None Seen HPF (0-3); Urobilinogen Normal mg/dL (Less than 2); WBC/HPF 0-3 HPF (0-3)
[2020-09-03 16:07] LABS: Bacteria/HPF Rare-Few HPF (None Seen)
[2020-09-03] MEDS ORDERED: Metoprolol Tartrate 5 MG/5 ML VIAL ONE (17:21)
--- NOTE | 2020-09-03 20:35 | PDOC.HHP ---
Hospitalist HPI - History of Present Illness History of Present Illness: ADMISSION DATE: 09/03/2020 TIME OF ASSESSMENT: 1814 PRIMARY CARE PHYSICIAN: Dr. Zurita CHIEF COMPLAINT: Failure to thrive per group home HPI: The patient is a 75-year-old male with past medical history significant for dementia and dysphagia. He presents to the ER today from his group home after not eating or drinking for the past 6 days. The group home has been supplementing with D5 and 1/2 saline through IV in his left wrist which they started. They are wanting him admitted per family request to have a PEG tube placed. Patient is a poor historian and alert and oriented only to self. Patient does state that he feels well and is not hurting. Denies any chest pain, shortness of breath, abdominal pain, dizziness. ED COURSE: Today in the ER the patient had a chest x-ray, head CT, EKG, lab work completed. He was given D5 normal saline 500 mL and metoprolol 5 mg IV push. PAST MEDICAL HISTORY: Hyperlipidemia, anxiety, GERD, dementia, hypertension, CVA, dysphagia PAST SURGICAL HISTORY: Unknown at this time, patient poor historian SOCIAL HISTORY: Patient currently lives in [facility]. No alcohol, no drugs, no tobacco use. FAMILY HISTORY: Noncontributory ALLERGIES: Codeine, guaifenesin, aspartame CURRENT MEDICATIONS: Patient unable to recall at this time we will obtain list from group home Hospitalist ROS - Review of Systems ROS unobtainable: due to mental status - Exam General Appearance: NAD, awake alert Eye: PERRL, anicteric sclera ENT: normocephalic atraumatic Heart: no murmur, no gallops, no rubs, normal peripheral pulses, irregular Respiratory: CTAB, no wheezes, no rales, no ronchi Gastrointestinal: soft, non-tender, non-distended, normal bowel sounds Neurological: no focal deficits Musculoskeletal: generalized weakness Psychiatric: normal behavior, oriented to person Hospitalist Results - Labs Result Diagrams: 09/03/20 15:08 09/03/20 15:08 Lab results: WBC 9.1 thou/uL (4.8-10.8) 09/03/20 15:08 Hgb 13.4 g/dL (14.0-18.0) L 09/03/20 15:08 Hct 40.0 % (42.0-52.0) L 09/03/20 15:08 MCV 94.7 fL (78.0-98.0) 09/03/20 15:08 Plt Count 183 thou/uL (130-400) 09/03/20 15:08 Neutrophils % 60.6 % (42.0-75.0) 09/03/20 15:08 Sodium 147 mmol/L (136-145) H 09/03/20 15:08 Potassium 3.5 mmol/L (3.5-5.1) 09/03/20 15:08 Chloride 111 mmol/L (98-107) H 09/03/20 15:08 Carbon Dioxide 25 mmol/L (23-31) 09/03/20 15:08 BUN 52 mg/dL (8.4-25.7) H 09/03/20 15:08 Creatinine 2.10 mg/dL (0.7-1.3) H 09/03/20 15:08 Glucose 101 mg/dL (83-110) 09/03/20 15:08 Lactic Acid 1.3 mmol/L (0.5-2.2) 09/03/20 15:08 Calcium 8.9 mg/dL (7.8-10.44) 09/03/20 15:08 Total Bilirubin 0.9 mg/dL (0.2-1.2) 09/03/20 15:08 AST 12 U/L (5-34) 09/03/20 15:08 ALT 15 U/L (8-55) 09/03/20 15:08 Alkaline Phosphatase 113 U/L (40-110) H 09/03/20 15:08 Creatine Kinase 39 U/L (30-200) 09/03/20 15:08 CK-MB (CK-2) 1.4 ng/mL (0-6.6) 09/03/20 15:08 Troponin I 0.030 ng/mL (< 0.028) H 09/03/20 19:38 B-Natriuretic Peptide 298.0 pg/mL (0-100) H 09/03/20 15:08 Serum Total Protein 7.6 g/dL (5.8-8.1) 09/03/20 15:08 Albumin 3.4 g/dL (3.4-4.8) 09/03/20 15:08 Lipase 19 U/L (8-78) 09/03/20 15:08 Urine Ketones Negative mg/dL (Negative) 09/03/20 15:50 Urine Blood 1+ (Negative) A 09/03/20 15:50 Urine Nitrite Negative (Negative) 09/03/20 15:50 Ur Leukocyte Esterase Negative Jenny/uL (Negative) 09/03/20 15:50 Urine RBC Greater than 50 HPF (0-3) A 09/03/20 15:50 Urine WBC 0-3 HPF (0-3) 09/03/20 15:50 Ur Squamous Epith Cells None Seen HPF (0-3) 09/03/20 15:50 Urine Bacteria Rare-Few HPF (None Seen) 09/03/20 15:50 - EKG Interpretation EKG: A. fib with RVR 113 bpm - Radiology Interpretation Chest x-ray Status: image reviewed by me, report reviewed by me Additional Comment: Stable cardiomegaly CT scan - head Status: report reviewed by me Additional Comment: No acute intracranial abnormalities, stable overall exam. Severe atrophy and chronic white matter change. Encephalomalacia change in left middle cerebral artery distribution. Hospitalist H&P A/P - Plan Plan: New onset A. fib with RVR Currently rate controlled Continue to monitor on telemetry TSH Echo in a.m. Cardiology consult Indeterminate troponins, possibly due to demand, continue to trend Elevated BNP, will hold diuretics at this time as patient appears dehydrated Acute kidney injury Continue IV hydration Recheck labs in a.m. Failure to thrive Palliative care consult Continue IV fluids Bedside swallow eval Dementia Continue home medications Hypertension Continue home medications if able to tolerate oral P.r.n. antihypertensives IV available Dysphagia Bedside swallow eval, n.p.o. if fails CODE STATUS: Full Surrogate decision maker is his daughter Mavis Kaufman, phone # [phone] Patient has been discussed with Dr. Benjamin
[2020-09-03] MEDS ORDERED: Dextrose 5 %-0.45 % NaCl 1,000 ML IV SCH (22:30)
[2020-09-03 23:54] LABS: Troponin I 0.019 ng/mL (< 0.028)
[2020-09-04 08:04] LABS: Anion Gap 18 mmol/L (10-20); BUN (Urea Nitrogen) 41 mg/dL (8.4-25.7); Calc. Creatinine Clearance 45 mL/min (70-130); Calcium 8.7 mg/dL (7.8-10.44); Carbon Dioxide 16 mmol/L (23-31); Chloride 121 mmol/L (98-107); Estimated GFR-MDRD 36; Glucose 113 mg/dL (83-110); Potassium 4.1 mmol/L (3.5-5.1); Sodium 151 mmol/L (136-145)
[2020-09-04] MEDS ORDERED: Non-Formulary Item 1 EACH (Albuterol Sulfate [Ventolin Hfa] 8 GM Hfa.Aer.Ad) INH PRN (08:31)
[2020-09-04] MEDS ORDERED: Acetaminophen 325 MG TAB PO PRN ×2 (08:31→08:45)
[2020-09-04] MEDS ORDERED: Benzonatate 100 MG CAP PO PRN (08:31)
[2020-09-04] MEDS ORDERED: POLYETHYLENE GLYCOL PO PRN (08:31)
[2020-09-04] MEDS ORDERED: Ondansetron PF 4 MG/2 ML Vial IVP PRN (08:32)
[2020-09-04] MEDS ORDERED: Senokot S 8.6-50 MG TAB PO PRN (08:32)
[2020-09-04] MEDS ORDERED: Sodium Chloride 0.65% Nasal 44 ML BOT EA NARE PRN (08:32)
[2020-09-04] MEDS ORDERED: Bisacodyl 10 MG SUPP PR PRN (08:32)
[2020-09-04] MEDS ORDERED: Loperamide HCl 2 MG CAP PO PRN (08:32)
[2020-09-04] MEDS ORDERED: Labetalol HCl 100 MG/20 ML VIAL SLOW IVP PRN (08:32)
[2020-09-04] MEDS ORDERED: Calcium Carbonate 500 MG ChewTAB PO PRN (08:32)
[2020-09-04] MEDS ORDERED: Acetaminophen 650 MG Suppository PR PRN (08:32)
[2020-09-04] MEDS ORDERED: Cepastat Lozenges 1 LOZ PO PRN (08:32)
[2020-09-04] MEDS ORDERED: Dextrose 5 %-0.45 % NaCl 1,000 ML IV SCH (08:33)
[2020-09-04] MEDS ORDERED: Metoprolol Tartrate 5 MG/5 ML VIAL IVP PRN (08:34)
[2020-09-04] MEDS ORDERED: Digoxin 0.5 MG/2 ML AMP SLOW IVP SCH (08:45)
[2020-09-04] MEDS ORDERED: PROVENTIL INHALER 6.7 G (200 INHALATIONS) INH PRN (08:51)
[2020-09-04] MEDS ORDERED: Polyethylene Glycol 3350 17 GM Packet PO PRN (08:52)
[2020-09-04] MEDS ORDERED: Atorvastatin Calcium 10 MG TAB PO SCH (09:00)
[2020-09-04] MEDS ORDERED: Amlodipine 5 MG TAB PO SCH ×3 (09:00→21:00)
[2020-09-04] MEDS ORDERED: Metoprolol Tartrate 25 MG TAB PO SCH (09:00)
[2020-09-04] MEDS ORDERED: Nystatin Powder 15 GM BOT TOP SCH (09:00)
[2020-09-04] MEDS ORDERED: FLUoxetine HCl 20 MG CAP PO SCH (09:00)
--- NOTE | 2020-09-04 11:00 | PDOC.HOSPP ---
- Subjective Encounter Date: 09/04/20 Encounter Time: 08:00 Subjective: Patient seen and examined bedside today, patient is altered, he is not able to provide any history, he is awake and chronically ill - Objective Vital Signs & Weight: Vital Signs (12 hours) Temp Pulse Resp BP Pulse Ox 09/04/20 09:02 149 H 09/04/20 08:00 98.1 F 125 H 16 119/78 96 09/04/20 03:32 98.1 F 117 H 24 H 129/76 93 L 09/04/20 00:00 98.1 F 62 22 H 101/68 92 L Weight Weight 201 lb 4.8 oz Result Diagrams: 09/03/20 15:08 09/04/20 07:44 Radiology Reviewed by me: Yes (Chest x-ray and CT brain reviewed) EKG Reviewed by me: Yes Hospitalist ROS - Review of Systems ROS unobtainable: due to mental status - Medication Medications: Active Medications Generic Name Dose Route Start Last Admin Trade Name Freq PRN Reason Stop Dose Admin Digoxin 0.5 mg 09/04/20 08:45 09/04/20 09:02 Digoxin 0.5 Mg/2 Ml Amp SLOW IVP 09/04/20 11:00 0.5 mg NOW ANTONIO Administration Metoprolol Tartrate 5 mg 09/04/20 08:34 09/04/20 10:17 Metoprolol Tartrate 5 Mg/5 Ml Vial IVP 5 mg Q6H PRN Administration for HR >120 and SBP >110 - Exam General Appearance: NAD, ill appearing Eye: PERRL, anicteric sclera ENT: normocephalic atraumatic, no oropharyngeal lesions, dry oral mucosa Neck: supple, symmetric, no JVD Heart: no murmur, irregular Respiratory: no wheezes, no rales, no ronchi Gastrointestinal: soft, non-tender, non-distended, normal bowel sounds Extremities: 1+ LE edema Skin: normal turgor, no lesions Musculoskeletal: normal tone Psychiatric: normal affect Hosp A/P (1) Acute metabolic encephalopathy Code(s): G93.41 - METABOLIC ENCEPHALOPATHY Status: Acute (2) Acute kidney injury Code(s): N17.9 - ACUTE KIDNEY FAILURE, UNSPECIFIED Status: Acute (3) Hypernatremia Code(s): E87.0 - HYPEROSMOLALITY AND HYPERNATREMIA Status: Acute (4) Atrial fibrillation with RVR Code(s): I48.91 - UNSPECIFIED ATRIAL FIBRILLATION Status: Acute (5) Failure to thrive Code(s): INP7639 - Status: Chronic Qualifiers: Failure to thrive age range: in adult Qualified Code(s): R62.7 - Adult failure to thrive (6) Alzheimer's dementia Code(s): G30.9 - ALZHEIMER'S DISEASE, UNSPECIFIED; F02.80 - DEMENTIA IN OTH DISEASES CLASSD ELSWHR W/O BEHAVRL DISTURB Status: Chronic Qualifiers: Dementia behavioral disturbance: without behavioral disturbance (7) Oropharyngeal dysphagia Code(s): R13.12 - DYSPHAGIA, OROPHARYNGEAL PHASE Status: Chronic (8) CVA, old, aphasia Code(s): I69.320 - APHASIA FOLLOWING CEREBRAL INFARCTION Status: Chronic - Plan old records reviewed/req, plan discussed w/ family Plan Continue dextrose with water 100 mL/h Patient will need PEG tube placement if family agree Medications reviewed and continue provide symptomatic and supportive care Prognosis guarded No need of repeat echocardiography as he had recently in July Repeat labs tomorrow Speech therapy Amiodarone drip started by cardiology Patient is not a good candidate for chronic anticoagulation because of multiple issue
--- NOTE | 2020-09-04 12:02 | CON ---
DATE OF CONSULTATION: HISTORY OF PRESENT ILLNESS: Yuriy Kaufman Jr. is a 75-year-old white male admitted from [facility]. He has previous history apparently of a hemorrhagic cerebrovascular accident with right hemiplegia and expressive aphasia. He was transferred to emergency room due to not eating or drinking for 6 days. He was given intravenous fluids, however, now the family requested to have a PEG tube placed. The patient cannot really provide much history. He does deny any chest discomfort, shortness of breath, or palpitations. He was found to be in atrial fibrillation with fast ventricular response. Has been placed on intravenous Cardizem as well as I had given him digoxin 0.5 mg IV and his rate has slowed into the 100s from the 140s. PAST MEDICAL HISTORY: History of hemorrhagic CVA, hyperlipidemia, anxiety, GERD, dementia, hypertension, dysphagia, and aphasia. MEDICATIONS: 1. Albuterol 2 puffs q.8 hours p.r.n. 2. Amlodipine 5 mg b.i.d. 3. Atorvastatin 10 daily. 4. Aspirin 81 daily. 5. Benzonatate 100 mg b.i.d. p.r.n. 6. Prozac 10 mg daily. 7. Cozaar 25 mg at bedtime. 8. Metoprolol 25 mg b.i.d. 9. Florastor 250 mg daily. ALLERGIES: ASPARTAME, CODEINE, AND GUAIFENESIN. SOCIAL HISTORY: Lives in [place]. Remaining social history unobtainable. FAMILY HISTORY: Unobtainable. REVIEW OF SYSTEMS: Unobtainable. PHYSICAL EXAMINATION: VITAL SIGNS: Blood pressure 119/78, pulse of 104. HEENT: PERRL. NECK: Supple. CHEST: Clear. CARDIAC: S1 and S2 normal without any S3, S4, or murmurs. The rhythm is irregularly irregular. ABDOMEN: Normal bowel sounds without tenderness. EXTREMITIES: Reveal no clubbing, cyanosis, or edema. NEUROLOGIC: The patient is somewhat aphasic. He does have mild right hemiparesis. LABORATORY DATA: EKG reveals atrial fibrillation, possible previous inferior infarction. Echocardiogram performed on August 15 revealed ejection fraction of 50% to 55%, study was technically difficult. No significant valvular abnormalities. Hemoglobin 13.4, hematocrit 40.0, white count 9100, platelets 183,000. Sodium 151, potassium 4.1, chloride 121, carbon dioxide 16, BUN 41, creatinine 1.82. Troponin I 0.030. BNP 298.0. TSH is normal. IMPRESSION: 1. New-onset atrial fibrillation with fast ventricular response. 2. History of hemorrhagic cerebrovascular accident, although I do not see any records in [place] in regard to that. 3. History of recent urinary tract infection and hematuria. 4. Dementia. 5. Hypertension. 6. History of previous COVID pneumonia. 7. Acute kidney injury due to poor p.o. intake. PLAN: The patient continue to be hydrated. With history of hemorrhagic CVA in the past, I am very hesitant to anticoagulate him with his atrial fibrillation. We will rate control with intermittent digoxin and metoprolol. I will go ahead and start IV amiodarone in the hopes of returning him to sinus rhythm. We may ultimately just try to rate control him. Job ID: [id number] MTDD
[2020-09-04 12:54] LABS: Band 53 % (5-11); Hemoglobin 13.5 g/dL (14.0-18.0); Lymphocytes 4 % (21-51); MDiff Complete? YES; Mean Corpuscular HGB CONC 34.2 g/dL (32.0-36.0); Mean Corpuscular Hemoglobin 32.2 pg (27.0-31.0); Mean Corpuscular Volume 94.1 fL (78.0-98.0); Mean Platelet Volume 8.5 fL (7.4-10.4); Metamyelocyte 1 % (0-0); Monocytes 13 % (0-10); Neutrophil 25 % (42-75); Platelet Count 170 thou/uL (130-400); Platelet Morphology Comment Appears Adequate; Polychromasia SLIGHT = 2-3 cells (100X) (0-2/hpf); RBC Distribution Width 13.1 % (11.5-14.5); Reactive Lymphocytes 4 % (0-10); Red Blood Cell (RBC) Count 4.18 mill/uL (4.70-6.10); Reflex for Review?? YES; White Blood Cell (WBC) Count 14.4 thou/uL (4.8-10.8)
[2020-09-04 13:57] LABS: SARS-CoV-2 MS2 Positive; SARS-CoV-2 N Gene Negative; SARS-CoV-2 S Gene Negative; SARS-CoV-2 by NAA Not Detected (NotDetected); SARS-CoV-2 orf1ab Negative
[2020-09-04] MEDS: Amiodarone 150 MG in Dextrose 5% in Water 100 ML IVPB SCH ×2 (14:38→16:46)
[2020-09-04] MEDS: Nystatin Powder 15 GM BOT TOP SCH ×3 (15:04→21:04)
[2020-09-04] MEDS: Metoprolol Tartrate 50 MG TAB PO SCH ×2 (15:06→21:02)
[2020-09-04] MEDS: Aspirin 81 mg Enteric Coated Tablet PO SCH (15:12)
[2020-09-04] MEDS: Saccharomyces boulardii 250 MG CAP PO SCH (15:12)
[2020-09-04] MEDS: Dextrose 5% in Water 1,000 ML IV SCH (15:13)
[2020-09-04] MEDS: FLUoxetine HCl 10 MG CAP PO SCH (15:13)
[2020-09-04] MEDS: Amiodarone 450 MG in Dextrose 5% in Water 250 ML IVPB SCH (16:47)
[2020-09-04] MEDS: Atorvastatin Calcium 10 MG TAB PO SCH (21:04)
[2020-09-05] MEDS: Amiodarone 450 MG in Dextrose 5% in Water 250 ML IVPB SCH ×2 (00:41→19:51)
[2020-09-05] MEDS: Dextrose 5% in Water 1,000 ML IV SCH (02:12)
[2020-09-05] MEDS ORDERED: Sodium Chloride 0.9% 250 ML IVPB SCH (03:15)
[2020-09-05 04:39] LABS: #Eosinphils 0.2 thou/uL (0.0-0.7); #Lymphocytes 2.2 thou/uL (1.20-3.40); #Monocytes 1.2 thou/uL (0.11-0.59); #Neutrophils 6.7 thou/uL (1.40-6.50); %Basophils 0.1 % (0.0-1.0); %Eosinophils 1.7 % (0.0-10.0); %Lymphocytes 21.2 % (21.0-51.0); %Neutrophils 65.1 % (42.0-75.0); Hemoglobin 12.4 g/dL (14.0-18.0); Mean Corpuscular HGB CONC 32.8 g/dL (32.0-36.0); Mean Corpuscular Hemoglobin 31.6 pg (27.0-31.0); Mean Corpuscular Volume 96.4 fL (78.0-98.0); Mean Platelet Volume 8.4 fL (7.4-10.4); Platelet Count 142 thou/uL (130-400); RBC Distribution Width 12.9 % (11.5-14.5); Red Blood Cell (RBC) Count 3.92 mill/uL (4.70-6.10); White Blood Cell (WBC) Count 10.3 thou/uL (4.8-10.8)
[2020-09-05 04:55] LABS: Lactic Acid 1.2 mmol/L (0.5-2.2)
[2020-09-05 04:58] LABS: Anion Gap 13 mmol/L (10-20); BUN (Urea Nitrogen) 35 mg/dL (8.4-25.7); Calc. Creatinine Clearance 46 mL/min (70-130); Calcium 7.8 mg/dL (7.8-10.44); Carbon Dioxide 21 mmol/L (23-31); Chloride 114 mmol/L (98-107); Estimated GFR-MDRD 38; Glucose 125 mg/dL (83-110); Sodium 145 mmol/L (136-145)
[2020-09-05 05:06] LABS: Potassium 2.9 mmol/L (3.5-5.1)
[2020-09-05] MEDS ORDERED: Potassium Chloride 20 MEQ TAB PO SCH (05:30)
[2020-09-05] MEDS ORDERED: Potassium Chloride 20 MEQ in Premix Bag 1 BAG IVPB SCH (06:15)
--- NOTE | 2020-09-05 09:44 | PDOC.HOSPP ---
- Subjective Encounter Date: 09/05/20 Encounter Time: 07:30 Subjective: Patient seen and examined bedside today, his heart rate is under control, he is on amiodarone drip, his blood pressure is on lower side, patient is awake but he is not able to communicate well - Objective Vital Signs & Weight: Vital Signs (12 hours) Temp Pulse Resp BP Pulse Ox 09/05/20 03:43 83 16 88/51 L 94 L 09/05/20 00:00 97.1 F L 73 15 97/58 L 92 L Weight Weight 201 lb 3.2 oz I&O: 09/04/20 09/05/20 09/06/20 06:59 06:59 06:59 Intake Total 1370 Output Total 2 Balance 1368 Result Diagrams: 09/05/20 04:29 09/05/20 04:29 Hospitalist ROS - Review of Systems ROS unobtainable: due to mental status - Medication Medications: Active Medications Generic Name Dose Route Start Last Admin Trade Name Freq PRN Reason Stop Dose Admin Aspirin 81 mg 09/04/20 09:00 09/04/20 15:12 Aspirin 81 Mg Enteric Coated Tablet PO 81 mg DAILY ANTONIO Administration Atorvastatin Calcium 10 mg 09/04/20 21:00 09/04/20 21:04 Atorvastatin Calcium 10 Mg Tab PO 10 mg HS ANTONIO Administration Fluoxetine HCl 10 mg 09/04/20 09:00 09/04/20 15:13 Fluoxetine Hcl 10 Mg Cap PO 10 mg DAILY ANTONIO Administration Amiodarone HCl 450 mg/ 259 mls @ 0 mls/hr 09/04/20 11:15 09/05/20 00:41 Dextrose/Water IVPB 259 mls INF ANTONIO Administration Protocol Per Protocol Dextrose/Water 1,000 mls @ 100 mls/hr 09/04/20 11:15 09/05/20 02:12 D5w IV 1,000 mls .Q10H ANTONIO Administration Metoprolol Tartrate 5 mg 09/04/20 08:34 09/04/20 10:17 Metoprolol Tartrate 5 Mg/5 Ml Vial IVP 5 mg Q6H PRN Administration for HR >120 and SBP >110 Metoprolol Tartrate 50 mg 09/04/20 09:00 09/04/20 21:02 Metoprolol Tartrate 50 Mg Tab PO 50 mg BID ANTONIO Administration Nystatin 0 gm 09/04/20 09:00 09/04/20 21:04 Nystatin Powder 15 Gm Bot TOP 1 applic TID ANTONIO Administration Ondansetron HCl 4 mg 09/04/20 08:32 09/05/20 02:11 Ondansetron Pf 4 Mg/2 Ml Vial IVP 4 mg Q6H PRN Administration Nausea/Vomiting Saccharomyces Boulardii 250 mg 09/04/20 09:00 09/04/20 15:12 Saccharomyces Boulardii 250 Mg Cap PO 250 mg DAILY ANTONIO Administration Sodium Chloride 10 ml 09/04/20 09:00 09/04/20 21:05 Flush - Normal Saline 10 Ml Syringe IVF 10 ml Q12HR ANTONIO Administration - Exam General Appearance: NAD, awake alert Eye: PERRL, anicteric sclera ENT: normocephalic atraumatic, no oropharyngeal lesions Neck: supple, symmetric, no JVD Heart: no murmur, no gallops, irregular Respiratory: no wheezes, no rales, no ronchi Gastrointestinal: soft, non-tender, non-distended, normal bowel sounds Extremities: 1+ LE edema Skin: normal turgor Psychiatric: normal affect Hosp A/P (1) Acute metabolic encephalopathy Code(s): G93.41 - METABOLIC ENCEPHALOPATHY Status: Acute (2) Acute kidney injury Code(s): N17.9 - ACUTE KIDNEY FAILURE, UNSPECIFIED Status: Acute (3) Hypernatremia Code(s): E87.0 - HYPEROSMOLALITY AND HYPERNATREMIA Status: Acute (4) Atrial fibrillation with RVR Code(s): I48.91 - UNSPECIFIED ATRIAL FIBRILLATION Status: Acute (5) C. difficile colitis Code(s): A04.72 - ENTEROCOLITIS D/T CLOSTRIDIUM DIFFICILE, NOT SPCF RECUR Status: Acute (6) Hypokalemia Code(s): E87.6 - HYPOKALEMIA Status: Acute (7) Failure to thrive Code(s): [id number] - Status: Chronic Qualifiers: Failure to thrive age range: in adult Qualified Code(s): R62.7 - Adult failure to thrive (8) CVA, old, aphasia Code(s): I69.320 - APHASIA FOLLOWING CEREBRAL INFARCTION Status: Chronic (9) Oropharyngeal dysphagia Code(s): R13.12 - DYSPHAGIA, OROPHARYNGEAL PHASE Status: Chronic (10) Alzheimer's dementia Code(s): G30.9 - ALZHEIMER'S DISEASE, UNSPECIFIED; F02.80 - DEMENTIA IN OTH DISEASES CLASSD ELSWHR W/O BEHAVRL DISTURB Status: Chronic Qualifiers: Dementia behavioral disturbance: without behavioral disturbance - Plan old records reviewed/req, continue antibiotics Plan Continue amiodarone as per cardiology Replace potassium Start vancomycin 125 mg p.o. every 6 hourly p.o. Contact precaution Repeat laboratory parameters tomorrow We will discontinue antihypertensive medication because of low blood pressure Change IV fluid to dextrose with NS with KCl at 100 mL/h
[2020-09-05] MEDS: Aspirin 81 mg Enteric Coated Tablet PO SCH ×2 (11:03→11:14)
[2020-09-05] MEDS: Vancomycin HCl 25 MG/ML Oral PO SCH ×4 (11:03→23:52)
[2020-09-05] MEDS: FLUoxetine HCl 10 MG CAP PO SCH ×2 (11:03→11:14)
[2020-09-05] MEDS: Saccharomyces boulardii 250 MG CAP PO SCH ×2 (11:03→11:15)
[2020-09-05] MEDS: D5 0.9% NS w/ 20 mEq KCl 1,000 ML IV SCH (11:04)
[2020-09-05] MEDS: Nystatin Powder 15 GM BOT TOP SCH ×3 (11:04→23:37)
[2020-09-05] MEDS: Metoprolol Tartrate 50 MG TAB PO SCH (12:58)
[2020-09-05] MEDS: Atorvastatin Calcium 10 MG TAB PO SCH (23:37)
[2020-09-06] MEDS: D5 0.9% NS w/ 20 mEq KCl 1,000 ML IV SCH ×4 (00:17→23:11)
[2020-09-06] MEDS: Vancomycin HCl 25 MG/ML Oral PO SCH ×4 (03:29→22:38)
[2020-09-06 05:20] LABS: #Eosinphils 0.2 thou/uL (0.0-0.7); #Monocytes 0.7 thou/uL (0.11-0.59); #Neutrophils 4.6 thou/uL (1.40-6.50); %Basophils 0.4 % (0.0-1.0); %Eosinophils 2.9 % (0.0-10.0); %Lymphocytes 26.1 % (21.0-51.0); %Monocytes 9.1 % (0.0-10.0); %Neutrophils 61.5 % (42.0-75.0); Hemoglobin 11.5 g/dL (14.0-18.0); Mean Corpuscular Hemoglobin 31.6 pg (27.0-31.0); Mean Platelet Volume 8.6 fL (7.4-10.4); Platelet Count 132 thou/uL (130-400); RBC Distribution Width 12.7 % (11.5-14.5); Red Blood Cell (RBC) Count 3.64 mill/uL (4.70-6.10); White Blood Cell (WBC) Count 7.5 thou/uL (4.8-10.8)
[2020-09-06 05:37] LABS: Anion Gap 11 mmol/L (10-20); BUN (Urea Nitrogen) 24 mg/dL (8.4-25.7); Calc. Creatinine Clearance 54 mL/min (70-130); Calcium 7.7 mg/dL (7.8-10.44); Carbon Dioxide 21 mmol/L (23-31); Chloride 116 mmol/L (98-107); Estimated GFR-MDRD 46; Glucose 114 mg/dL (83-110); Potassium 3.4 mmol/L (3.5-5.1); Sodium 145 mmol/L (136-145)
[2020-09-06 05:38] VITALS: BMI 28.3
[2020-09-06] MEDS ORDERED: Potassium Chloride 20 MEQ TAB PO SCH (07:45)
[2020-09-06] MEDS: FLUoxetine HCl 10 MG CAP PO SCH (08:54)
[2020-09-06] MEDS: Saccharomyces boulardii 250 MG CAP PO SCH (08:54)
[2020-09-06] MEDS: Aspirin 81 mg Enteric Coated Tablet PO SCH (08:54)
[2020-09-06] MEDS: Nystatin Powder 15 GM BOT TOP SCH ×3 (08:56→22:38)
--- NOTE | 2020-09-06 10:03 | PDOC.HOSPP ---
- Subjective Encounter Date: 09/06/20 Encounter Time: 07:40 Subjective: Patient seen and examined bedside today, no overnight event, heart rate is under control - Objective Vital Signs & Weight: Vital Signs (12 hours) Temp Pulse Resp BP Pulse Ox 09/06/20 07:24 97.4 F L 71 20 116/64 97 09/06/20 03:29 97.9 F 87 14 130/69 93 L 09/05/20 23:39 93 L 09/05/20 23:28 98.1 F 80 20 121/71 91 L Weight Weight 209 lb 4.8 oz I&O: 09/05/20 09/06/20 09/07/20 06:59 06:59 06:59 Intake Total 1370 Output Total 252 Balance 1118 Result Diagrams: 09/06/20 05:06 09/06/20 05:06 EKG Reviewed by me: Yes Hospitalist ROS - Review of Systems ROS unobtainable: due to mental status - Medication Medications: Active Medications Generic Name Dose Route Start Last Admin Trade Name Freq PRN Reason Stop Dose Admin Aspirin 81 mg 09/04/20 09:00 09/06/20 08:54 Aspirin 81 Mg Enteric Coated Tablet PO 81 mg DAILY ANTONIO Administration Atorvastatin Calcium 10 mg 09/04/20 21:00 09/05/20 23:37 Atorvastatin Calcium 10 Mg Tab PO 10 mg HS ANTONIO Administration Fluoxetine HCl 10 mg 09/04/20 09:00 09/06/20 08:54 Fluoxetine Hcl 10 Mg Cap PO 10 mg DAILY ANTONIO Administration Amiodarone HCl 450 mg/ 259 mls @ 0 mls/hr 09/04/20 11:15 09/05/20 19:51 Dextrose/Water IVPB 259 mls INF ANTONIO Administration Protocol Per Protocol Potassium Chloride/Dextrose/Sod Cl 1,000 mls @ 100 mls/hr 09/05/20 10:00 09/06/20 05:39 D5 0.9% Ns W/ 20 Meq Kcl IV Not Given .Q10H ANTONIO Metoprolol Tartrate 5 mg 09/04/20 08:34 09/04/20 10:17 Metoprolol Tartrate 5 Mg/5 Ml Vial IVP 5 mg Q6H PRN Administration for HR >120 and SBP >110 Nystatin 0 gm 09/04/20 09:00 09/06/20 08:56 Nystatin Powder 15 Gm Bot TOP 1 applic TID ANTONIO Administration Ondansetron HCl 4 mg 09/04/20 08:32 09/05/20 02:11 Ondansetron Pf 4 Mg/2 Ml Vial IVP 4 mg Q6H PRN Administration Nausea/Vomiting Saccharomyces Boulardii 250 mg 09/04/20 09:00 09/06/20 08:54 Saccharomyces Boulardii 250 Mg Cap PO 250 mg DAILY ANTONIO Administration Sodium Chloride 10 ml 09/04/20 09:00 09/06/20 08:57 Flush - Normal Saline 10 Ml Syringe IVF 10 ml Q12HR ANTONIO Administration Vancomycin HCl 125 mg 09/05/20 09:00 09/06/20 08:54 Vancomycin Hcl 25 Mg/Ml Oral PO 125 mg Q6H ANTONIO Administration - Exam General Appearance: NAD, awake alert Eye: PERRL, anicteric sclera ENT: normocephalic atraumatic, no oropharyngeal lesions Neck: symmetric, no JVD, no thyromegaly Heart: no murmur, no gallops, irregular Respiratory: no wheezes, no rales, no ronchi Gastrointestinal: soft, non-tender, non-distended, normal bowel sounds Extremities: no clubbing, no edema Skin: normal turgor Neurological: no new deficit Musculoskeletal: normal tone, normal strength Psychiatric: not oriented Hosp A/P (1) Acute metabolic encephalopathy Code(s): G93.41 - METABOLIC ENCEPHALOPATHY Status: Acute (2) Acute kidney injury Code(s): N17.9 - ACUTE KIDNEY FAILURE, UNSPECIFIED Status: Acute (3) Hypernatremia Code(s): E87.0 - HYPEROSMOLALITY AND HYPERNATREMIA Status: Acute (4) Atrial fibrillation with RVR Code(s): I48.91 - UNSPECIFIED ATRIAL FIBRILLATION Status: Acute (5) C. 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 (9) Oropharyngeal dysphagia Code(s): R13.12 - DYSPHAGIA, OROPHARYNGEAL PHASE Status: Chronic (10) Alzheimer's dementia Code(s): G30.9 - ALZHEIMER'S DISEASE, UNSPECIFIED; F02.80 - DEMENTIA IN OTH DISEASES CLASSD ELSWHR W/O BEHAVRL DISTURB Status: Chronic Qualifiers: Dementia behavioral disturbance: without behavioral disturbance - Plan old records reviewed/req, continue antibiotics Plan Acute metabolic encephalopathy, has been resolved, patient is up to his baseline level now We will replace potassium for low potassium Hyponatremia has been corrected Renal function continued to improve with IV fluids Amiodarone will defer to cardiology, can be changed to oral Continue p.o. vancomycin Medication reviewed and continue provide symptomatic and supportive care We will repeat labs tomorrow Expecting discharge tomorrow if stable
[2020-09-06] MEDS: Amiodarone 450 MG in Dextrose 5% in Water 250 ML IVPB SCH (11:11)
[2020-09-06] MEDS: Metoprolol Tartrate 25 MG TAB PO SCH (22:38)
[2020-09-06] MEDS: Atorvastatin Calcium 10 MG TAB PO SCH (22:38)
[2020-09-07] MEDS: Vancomycin HCl 25 MG/ML Oral PO SCH ×3 (02:54→14:28)
[2020-09-07 06:32] LABS: Anion Gap 16 mmol/L (10-20); BUN (Urea Nitrogen) 15 mg/dL (8.4-25.7); Calc. Creatinine Clearance 64 mL/min (70-130); Calcium 8.1 mg/dL (7.8-10.44); Carbon Dioxide 16 mmol/L (23-31); Chloride 122 mmol/L (98-107); Estimated GFR-MDRD 53; Glucose 93 mg/dL (83-110); Potassium 4.8 mmol/L (3.5-5.1); Sodium 149 mmol/L (136-145)
[2020-09-07] MEDS: D5 0.9% NS w/ 20 mEq KCl 1,000 ML IV SCH (10:10)
[2020-09-07] MEDS: Aspirin 81 mg Enteric Coated Tablet PO SCH (10:11)
[2020-09-07] MEDS: Metoprolol Tartrate 25 MG TAB PO SCH (10:11)
[2020-09-07] MEDS: FLUoxetine HCl 10 MG CAP PO SCH (10:11)
[2020-09-07] MEDS: Saccharomyces boulardii 250 MG CAP PO SCH (10:11)
[2020-09-07] MEDS: Nystatin Powder 15 GM BOT TOP SCH ×2 (10:12→14:28)
--- NOTE | 2020-09-07 11:17 | PDOC.HOSPP ---
- Subjective Encounter Date: 09/07/20 Encounter Time: 09:40 Subjective: Patient seen and examined. No new complaints. No overnight events - Objective Vital Signs & Weight: Vital Signs (12 hours) Temp Pulse Resp BP Pulse Ox 09/07/20 08:17 97.5 F L 95 18 121/78 98 09/07/20 05:00 97.2 F L 89 20 119/68 97 09/07/20 01:24 97.5 F L 95 18 102/63 94 L 09/07/20 00:24 98.4 F 88 16 112/74 95 Weight Weight 213 lb 6.4 oz I&O: 09/06/20 09/07/20 09/08/20 06:59 06:59 06:59 Intake Total 1370 480 Output Total 252 Balance 1118 480 Result Diagrams: 09/06/20 05:06 09/07/20 06:09 EKG Reviewed by me: Yes Hospitalist ROS - Review of Systems ROS unobtainable: due to mental status - Medication Medications: Active Medications Generic Name Dose Route Start Last Admin Trade Name Freq PRN Reason Stop Dose Admin Aspirin 81 mg 09/04/20 09:00 09/07/20 10:11 Aspirin 81 Mg Enteric Coated Tablet PO 81 mg DAILY ANTONIO Administration Atorvastatin Calcium 10 mg 09/04/20 21:00 09/06/20 22:38 Atorvastatin Calcium 10 Mg Tab PO 10 mg HS ANTONIO Administration Fluoxetine HCl 10 mg 09/04/20 09:00 09/07/20 10:11 Fluoxetine Hcl 10 Mg Cap PO 10 mg DAILY ANTONIO Administration Metoprolol Tartrate 5 mg 09/04/20 08:34 09/04/20 10:17 Metoprolol Tartrate 5 Mg/5 Ml Vial IVP 5 mg Q6H PRN Administration for HR >120 and SBP >110 Metoprolol Tartrate 25 mg 09/06/20 21:00 09/07/20 10:11 Metoprolol Tartrate 25 Mg Tab PO 25 mg BID ANTONIO Administration Nystatin 0 gm 09/04/20 09:00 09/07/20 10:12 Nystatin Powder 15 Gm Bot TOP 1 applic TID ANTONIO Administration Ondansetron HCl 4 mg 09/04/20 08:32 09/05/20 02:11 Ondansetron Pf 4 Mg/2 Ml Vial IVP 4 mg Q6H PRN Administration Nausea/Vomiting Saccharomyces Boulardii 250 mg 09/04/20 09:00 09/07/20 10:11 Saccharomyces Boulardii 250 Mg Cap PO 250 mg DAILY ANTONIO Administration Sodium Chloride 10 ml 09/04/20 09:00 09/07/20 10:12 Flush - Normal Saline 10 Ml Syringe IVF Not Given Q12HR ANTONIO Vancomycin HCl 125 mg 09/05/20 09:00 09/07/20 10:11 Vancomycin Hcl 25 Mg/Ml Oral PO 125 mg Q6H ANTONIO Administration - Exam General Appearance: NAD, awake alert Eye: PERRL, anicteric sclera ENT: normocephalic atraumatic, no oropharyngeal lesions Neck: symmetric, no JVD Heart: RRR, no murmur, no gallops, irregular Respiratory: CTAB, no wheezes, no rales, no ronchi Gastrointestinal: soft, non-tender, non-distended, normal bowel sounds Extremities: no cyanosis, no clubbing, no edema Skin: normal turgor, no lesions Neurological: no new deficit Musculoskeletal: normal tone, normal strength Psychiatric: normal affect Hosp A/P (1) Acute metabolic encephalopathy Code(s): G93.41 - METABOLIC ENCEPHALOPATHY Status: Acute (2) Acute kidney injury Code(s): N17.9 - ACUTE KIDNEY FAILURE, UNSPECIFIED Status: Acute (3) Hypernatremia Code(s): E87.0 - HYPEROSMOLALITY AND HYPERNATREMIA Status: Acute (4) Atrial fibrillation with RVR Code(s): I48.91 - UNSPECIFIED ATRIAL FIBRILLATION Status: Acute (5) C. 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
--- NOTE | 2020-09-07 12:05 | PQF ---
CLINICAL DOCUMENTATION CLARIFICATION FORM: Dear Dr. Martinez Date: 09/07/2020 Please exercise your independent, professional judgment in responding to the clarification form. Clinical indicators are provided on the bottom of this form for your review. Diagnosis: C difficile colitis Present on Admission (POA): [x ] Yes [ ] No [ ] Unable to determine For continuity of documentation, please document condition throughout progress notes and discharge summary. Thank You. To be completed by CDI/Coding staff for physician review: CLINICAL INDICATORS - SIGNS / SYMPTOMS / LABS / RESULTS AND LOCATION IN MR *H&P 09/03 ([place]) HPI: Presents to ER from [facility] after not eating or drinking for the past 6 days. A/P: New onset A fib with RVR. SONIA, Failure to thrive *Nurses Assessment 09/03 @ 2300: GI Symptoms: Diarrhea Incontinent - stool Stool characteristics: Liquid Brown Moderate *Nursing note 09/04 @ 1020 ([place]) pt also had Large liquid BM, Brief changed by bedspread cutter *09/05 pn (Juan) A/P: C difficile colitis RISK FACTORS / RSULTS AND LOCATION IN MR *ER Record: 09/03: PMH Clostridium difficile. *H&P 09/03 ([place]): HPI: 75 yo with pmh significant for dementia and dysphagia. TREATMENT / RSULTS AND LOCATION IN MR *09/05 Order: Clostridium difficile Assay *09/05 pn (Juan) Plan: Start vancomycin 125mg po q 6 hrly Thank you, Dee Pablo, RN, BSN [email or web address] This is a permanent part of the Medical Record [facility]
--- NOTE | 2020-09-07 12:07 | PDOC.DS.DS ---
Provider - Provider Date of Admission: 09/03/20 17:46 Date of Discharge: 09/07/20 Admitting Provider: Sangeeta Benjamin MD Consultations: Cardiology Primary Care Physician: GURPREET STONER MD Course - Hospital Course Hospital Course: 75-year-old male who was sent from care home for failure to thrive, patient was not eating or drinking for last 6 days, patient was found with significant dehydration, he had hypernatremia and hyperchloremia, patient was given free water, patient was also treated with dextrose with water and his sodium pot assium and chloride improved, his renal function also improved, patient was found with C. difficile colitis, which was treated with oral vancomycin. On admission patient had A. fib with RVRcardiology was consulted and patient was initially treated with amiodarone drip and subsequently continued on all his previous medication. His A. fib with RVR was related with dehydration, hence subsequently patient maintain rate control rhythm with metoprolol. Patient is doing much better, he is up to his baseline level, will consider discharging him back to care home later on today. Resuscitation Status: 09/03/20 22:19 Resuscitation Status Routine Co-Sign Provider: Resuscitation Status: FULL: Full Resuscitation Additional comments: directive on file with [facility]- will attempt to reach family - Labs Lab Results: 09/06/20 05:06 09/07/20 06:09 Abnormal Lab Results - Last 48 hrs 09/06/20 05:06: Potassium 3.4 L, Chloride 116 H, Carbon Dioxide 21 L, Creatinine 1.49 H, Calcium 7.7 L 09/06/20 05:06: RBC 3.64 L, Hgb 11.5 L, Hct 33.9 L, MCH 31.6 H, Monocytes # 0.7 H 09/07/20 06:09: Sodium 149 H, Chloride 122 H, Carbon Dioxide 16 L, Creatinine 1.32 H Microbiology - Entire Visit 09/03/20 15:08 Venous blood - Right Arm Blood Culture - Preliminary NO GROWTH AT 48 HOURS 09/03/20 15:08 Venous blood - Right Arm Blood Culture - Preliminary NO GROWTH AT 48 HOURS 09/03/20 15:50 Urine Straight Catheter Urine Culture - Final NO GROWTH AT 48 HOURS 09/05/20 00:30 Stool C. difficile GDH Antigen & Toxins - Final - Diagnostic Interpretation Other Additional comments: CT brain on admission showed no acute intracranial process other than severe atrophy and chronic white matter changes Chest x-ray on admission showed cardiomegaly without any acute process - Physical Exam Vitals: Vital Signs (12 hours) Temp Pulse Resp BP Pulse Ox 09/07/20 08:17 97.5 F L 95 18 121/78 98 09/07/20 05:00 97.2 F L 89 20 119/68 97 09/07/20 01:24 97.5 F L 95 18 102/63 94 L 09/07/20 00:24 98.4 F 88 16 112/74 95 Weight Weight 213 lb 6.4 oz Physical Exam: The patient was seen and examined on the day of discharge. Problem - Problem (1) Acute metabolic encephalopathy Code(s): G93.41 - METABOLIC ENCEPHALOPATHY Status: Resolved (2) Acute kidney injury Code(s): N17.9 - ACUTE KIDNEY FAILURE, UNSPECIFIED Status: Resolved (3) Hypernatremia Code(s): E87.0 - HYPEROSMOLALITY AND HYPERNATREMIA Status: Resolved (4) Atrial fibrillation with RVR Code(s): I48.91 - UNSPECIFIED ATRIAL FIBRILLATION Status: Resolved (5) C. 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 (9) Oropharyngeal dysphagia Code(s): R13.12 - DYSPHAGIA, OROPHARYNGEAL PHASE Status: Chronic (10) Alzheimer's dementia Code(s): G30.9 - ALZHEIMER'S DISEASE, UNSPECIFIED; F02.80 - DEMENTIA IN OTH DISEASES CLASSD ELSWHR W/O BEHAVRL DISTURB Status: Chronic Qualifiers: Dementia behavioral disturbance: without behavioral disturbance Plan - Discharge Medications Prescriptions: Vancomycin HCl [First Vancomycin] 125 mg PO Q6H #300 ml Home Medications: Medication Instructions Recorded Confirmed Type Acetaminophen [Non-Aspirin] 2 tab PO Q4HR PRN 07/27/20 09/03/20 History Albuterol Sulfate [Ventolin HFA] 2 puff INH Q8HR PRN 07/27/20 09/03/20 History Atorvastatin Calcium [Lipitor] 10 mg PO DAILY 07/27/20 09/03/20 History Benzonatate 100 mg PO BID PRN 07/27/20 09/03/20 History Polyethylene Glycol 3350 [Glycolax] 17 gm PO DAILY PRN 07/27/20 09/03/20 History Saccharomyces boulardii [Florastor] 250 mg PO DAILY #30 cap 07/30/20 09/03/20 Rx FLUoxetine HCl [Prozac] 10 mg PO DAILY 08/14/20 09/03/20 History Nystatin [Nystatin Powder] 1 applic TOP TID 08/14/20 09/03/20 History Aspirin [Adult Low Dose Aspirin EC] 81 mg PO DAILY #1 tablet. 08/19/20 09/03/20 Rx Metoprolol Tartrate [Lopressor] 25 mg PO BID tab 08/19/20 09/03/20 Rx Amlodipine [Norvasc] 5 mg PO DAILY #0 tab 09/07/20 09/03/20 Rx Vancomycin HCl [First Vancomycin] 125 mg PO Q6H #300 ml 09/07/20 Rx Allergies: aspartame Allergy (Unknown, Verified 09/03/20 23:32) per [place] records codeine Allergy (Unknown, Verified 09/03/20 23:32) per [place] guaifenesin Allergy (Unknown, Verified 09/03/20 23:32) Per [place] records - Discharge Instructions Activity:: Activity as Tolerated Nourishment:: Heart Healthy Diet Therapies:: Occupational Therapy, Physical Therapy Equipment/Supplies:: Not Applicable IV Therapy:: Not Applicable - Follow up Plan Referrals: GURPREET STONER MD [Primary Care Provider] - Disposition: RESIDENTIAL FACILITY Quality - Care Measures CORE MEASURES:: N/A
[2020-09-07 12:31] VITALS: TEMP 97.7
[2020-09-07 15:12] VITALS: BP 130/72
== END 2020-09-07 18:47 | DRG 371 ==
LOC: ERS 13:39 → ERHOLD 17:46 → 2SE 23:13
PROVIDERS: ADMIT Internal Medicine; ATTEND Internal Medicine
DX: A04.72 Enterocolitis due to Clostridium difficile, not specified as recurrent (principal); G93.41 Metabolic encephalopathy; E87.0 Hyperosmolality and hypernatremia; N17.9 Acute kidney failure, unspecified; I69.351 Hemiplegia and hemiparesis following cerebral infarction affecting right dominant side; E86.0 Dehydration; E87.8 Other disorders of electrolyte and fluid balance, not elsewhere classified; I48.91 Unspecified atrial fibrillation; E87.6 Hypokalemia; R13.12 Dysphagia, oropharyngeal phase; G30.9 Alzheimer's disease, unspecified; F02.80 Dementia in other diseases classified elsewhere, unspecified severity, without behavioral disturbance, psychotic disturbance, mood disturbance, and anxiety; Z20.828 Contact with and (suspected) exposure to other viral communicable diseases; K21.9 Gastro-esophageal reflux disease without esophagitis; F41.9 Anxiety disorder, unspecified; E78.5 Hyperlipidemia, unspecified; Z88.8 Allergy status to other drugs, medicaments and biological substances; I69.320 Aphasia following cerebral infarction; I69.321 Dysphasia following cerebral infarction; Z91.018 Allergy to other foods; Z79.899 Other long term (current) drug therapy; Z79.82 Long term (current) use of aspirin; Z79.890 Hormone replacement therapy; Z86.19 Personal history of other infectious and parasitic diseases
CPT/HCPCS: 36415; 51701; 70450; 71045; 80048; 80053; 81003; 81015; 82550; 82553; 83605; 83690; 83735; 83880; 84443; 84484; 85025; 85060; 87040; 87086; 87324; 87449; 87635; 93005; 96374; J0282; J1160; J2405; J3480; J7030; J7070; U0003

== ENCOUNTER 2020-09-09 06:53 | Observation (INO) | payer MEDICARE, BC, OTHER ==
[2020-09-09] MEDS ORDERED: PROPOFOL 200 MG/20 ML VIAL ONE (09:16)
[2020-09-09] MEDS ORDERED: Ketamine 50 MG/ML (10ML VIAL) ONE (09:37)
--- NOTE | 2020-09-09 11:56 | OP ---
DATE OF PROCEDURE: 09/09/2020 INDICATION FOR PROCEDURE: Oropharyngeal dysphagia, protein-calorie malnutrition with failure to thrive. PROCEDURES PERFORMED: Esophagogastroduodenoscopy with percutaneous gastrostomy tube placement, in addition to biopsy. DESCRIPTION OF PROCEDURE: After the risks and benefits of the procedure were explained to the patient's surrogate (the patient's daughter, Mavis) including risks of bleeding, infection, perforation, reactions to anesthesia, aspiration and/or pain, informed consent was obtained. The patient was then taken to the endoscopy suite, where he was placed in the supine position in preparation for the procedure. Once in adequate position, administration of propofol was initiated via Anesthesia support with good sedation achieved. Once adequate sedation was achieved, the standard gastroscope was introduced into the mouth with intubation of the esophagus, stomach, and the proximal small intestines with the findings listed below. The patient tolerated the procedure well with no immediate perioperative complications. On conclusion of the initial examination, a site within the gastric body was then identified using one-to-one compression and transillumination. Once an adequate site was identified, the percutaneous gastrostomy tube kit was opened. Using approximately 5 mL of 1% Xylocaine, it was introduced just underneath the skin in a wheal formation, then directed perpendicular to the skin, and the needle was advanced into the stomach using back pressure as it was advanced. On withdrawal of the needle, the entire 5 mL was instilled along the tract to achieve local anesthesia. Once local anesthesia was adequately performed, using a scalpel, a 1 cm vertical incision was then made with minimal amounts of bleeding with this maneuver. An aspiration needle was then advanced through the wound and into the stomach, along which a guidewire was then advanced using a snare that was advanced through the biopsy port of the standard gastroscope. The guidewire was then retrieved from the lumen of the stomach and withdrawn out through the mouth with good stabilization of the guidewire achieved at both ends. The guidewire was then affixed to a 20-[employer] percutaneous gastrostomy tube, and using a push technique, it was then advanced through the mouth and out through the anterior wall of the stomach and anterior wall of the abdomen itself. The tubing was then cut to length with the external bumper affixed in addition to the external evaluation of the PEG tube in the gastric lumen with no problems indicated at that time, all equipments were then removed from the patient and he was transferred to PACU in satisfactory condition. FINDINGS: Esophagus: Normal-appearing mucosa was seen in the proximal, mid, and distal esophagus. Normal-appearing mucosa was also seen at the gastroesophageal junction. There was no evidence of erosions, ulcerations, mass lesions, or active/recent bleeding. Stomach: Normal-appearing mucosa was seen in the gastric cardia and fundus; however, increased mucosal erythema in a diffuse-type pattern was seen in the distal gastric fundus, body, greater curvature, antrum, and incisura. Associated with this increased erythema in the antrum, there were multiple areas of mildly raised, slightly polypoid formations of gastric mucosa that did exhibit some petechiae-appearing clots, but no evidence of erosions, ulcerations, or active bleeding. Multiple biopsies were then taken throughout the stomach for evaluation of possible H pylori. There was no evidence of mass lesions or active bleeding seen during this portion of the procedure. Duodenum: Multiple superficial clean-based ulcerations were seen in the duodenal bulb, but did not extend into the second portion of the duodenum. These ulcerations were approximately 3 to 6 mm in size with larger ulcerations exhibiting a slight black eschar associated with it. Upon manipulation of these ulcerations, there was some mild friability of the surrounding mucosa, but no actual overt bleeding from the ulcerations themselves. Again, multiple biopsies were taken from the stomach for evaluation of possible H pylori status. Otherwise, normal-appearing mucosa again was seen in the second portion of the duodenum. There was no evidence of mass lesions or adherent blood clot. IMPRESSION: 1. Increased mucosal erythema seen throughout the majority of the stomach with petechiae-like clots in the gastric antrum consistent with NSAID gastritis. 2. Multiple duodenal bulb ulcerations measuring 3 to 6 mm in size. Some exhibiting a black eschar, but no evidence of active bleeding. 3. Mild friability of the duodenal bulb surrounding the ulcerations themselves with minimal oozing of blood. 4. Successful placement of a [employer] 20-[employer] percutaneous gastrostomy tube. RECOMMENDATIONS: 1. We would follow up on the biopsy results, and if positive for H pylori, would treat with quadruple therapy. 2. We would recommend placing the patient on a PPI; however, the patient does have a concurrent diagnosis of Clostridium difficile colitis, at which point PPI administration can worsen the infection, instead I would recommend placing the patient on famotidine 40 mg daily as part of mucosal protection of both the stomach and the duodenum. 3. We would attempt to avoid any NSAIDs if possible. If they are clinically indicated, I would recommend concurrent administration of either an H2 erich or PPI. 4. We would hold on any tube feeds for the next 6 hours, then advance tube feeds as tolerated via dietary recommendations. 5. We will contact the Hospitalist Service for admitting the patient for 24-hour observations for any postprocedural complications (especially with IV infiltration seen during the examination). We will continue to follow. Please call with any questions. Job ID: [id number]
[2020-09-09] MEDS ORDERED: Acetaminophen 325 MG TAB PER TUBE PRN (12:58)
[2020-09-09] MEDS ORDERED: Ondansetron PF 4 MG/2 ML Vial IVP PRN (12:58)
[2020-09-09 13:36] VITALS: BMI 29.2
--- NOTE | 2020-09-09 13:48 | PDOC.HHP ---
Hospitalist HPI - History of Present Illness Failure to thrive, dysphagia History of Present Illness: PCP: Dr. Zurita The patient is a 75-year-old male with a past medical history significant for CVA with oropharyngeal dysphagia, failure to thrive that presents to the hospital as a direct admit from [facility] for EGD with percutaneous gastrostomy tube placement and biopsy by . The patient was recently discharged from our hospital on 09/07/2020 for failure to thrive and dehydration. The patient had Clostridium difficile infection and went into A. fib with RVR at that stay. His A. fib was rate controlled with his home dose of metoprolol. He was placed on oral vancomycin and sent back to the custodial. Today he returns for his scheduled PEG tube placement. We were consulted for medical management. The patient has a history of Alzheimer's dementia and is only oriented to person and he is able to follow commands. Nods his head yes/no to questions. At bedside, he denied any chest pain, shortness of breath, abdominal pain, nausea. He denies chills. He had no complaints at the time of my interview. 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 difficile infection) - Past Surgical History Past Surgical History: reports: Other (Patient is a poor historian unable to obtain at bedside) - Family History Other Family History: Noncontributory to this case. - Social History Smoking Status: Unknown if ever smoked Alcohol: reports: None Drugs: reports: none Living Situation: Penitentiary (Resides at [facility]) - Exam General Appearance: NAD. negative: ill appearing General - other findings: Somnolent status post Eye: PERRL, anicteric sclera ENT: normocephalic atraumatic, dry oral mucosa Neck: supple, symmetric Heart: no murmur, no gallops, no rubs, normal peripheral pulses, irregular (Rate controlled, history A. fib) Respiratory: CTAB, no wheezes, no rales, no ronchi, normal chest expansion, no tachypnea Gastrointestinal: soft, no guarding, no rigidity, tender to palpation (Mildly tender to palpation around G-tube) Gastrointestinal - other findings: Hypoactive bowel sounds, G-tube in place Skin: no rashes Neurological - other findings: GCS E3 V5 M6, follows commands no focal deficit Psychiatric: oriented to person, somnolent (Status post surgery) Hospitalist H&P A/P - Problem (1) Dysphagia due to old cerebrovascular accident Code(s): I69.391 - DYSPHAGIA FOLLOWING CEREBRAL INFARCTION Status: Acute (2) Failure to thrive Code(s): DYI1945 - Status: Acute (3) Clostridium difficile infection Code(s): A49.8 - OTHER BACTERIAL INFECTIONS OF UNSPECIFIED SITE Status: Acute (4) S/P percutaneous endoscopic gastrostomy (PEG) tube placement Code(s): Z93.1 - GASTROSTOMY STATUS Status: Acute (5) Atrial fibrillation, permanent Code(s): I48.21 - PERMANENT ATRIAL FIBRILLATION Status: Acute (6) Alzheimer's dementia Code(s): G30.9 - ALZHEIMER'S DISEASE, UNSPECIFIED; F02.80 - DEMENTIA IN OTH DISEASES CLASSD ELSWHR W/O BEHAVRL DISTURB Status: Acute (7) HTN (hypertension) Code(s): I10 - ESSENTIAL (PRIMARY) HYPERTENSION Status: Acute (8) HLD (hyperlipidemia) Code(s): E78.5 - HYPERLIPIDEMIA, UNSPECIFIED Status: Acute (9) GERD (gastroesophageal reflux disease) Code(s): K21.9 - GASTRO-ESOPHAGEAL REFLUX DISEASE WITHOUT ESOPHAGITIS Status: Acute - Plan Plan: 75/M with PMH dysphagia due to old CVA and failure to thrive presents for scheduled EGD with PEG tube placement. Admit observation status to oncology floor. Expected length of stay less than 2 midnights. GI recommendations post EGD: 1. Follow-up biopsy results, if positive H. pylori would recommend quadruple therapy. 2. Due to C. difficile colitis, recommend Pepcid 40 mg daily as a part of mucosal protection of the stomach and duodenum. 3. Attempt to avoid all NSAIDs. If clinically indicated, recommend administration with an H2 erich. 4. Hold tube feeds for the next 6 hours, then advance diet as tolerated. 5. Observe 24 hours for postprocedural complications #Dysphagia due to old cerebrovascular infarct Chronic. Status post PEG tube placement POD #0 #Failure to thrive Likely due to problem #1 #Clostridium difficile infection Continue home dosage of vancomycin per PEG tube. Enteric contact precautions. #Status post percutaneous endoscopic gastrostomy PEG tube placement. POD #0 GI recs appreciated. Dietary consultation pending. Okay to use PEG tube in 6 hours. Start Pepcid 20 mg twice daily. Hold aspirin for now. Biopsy for H. pylori pending. If positive, recommend quadruple therapy. #Atrial fibrillation, permanent Rate controlled with home dose metoprolol. Continue metoprolol. Hold home dose aspirin for now. #Alzheimer's dementia Chronic, stable. Patient oriented to self, follows commands. #HTN Chronic, stable. Restart home dose of amlodipine. Monitor BP. #HLD Restart home dose atorvastatin. #GERD Per GI recommendations, start Pepcid 20 mg twice daily. SCDs for DVT prophylaxis. Pepcid for GI prophylaxis. Full code. Discussed the case with Dr. De La Cruz.
[2020-09-09] MEDS ORDERED: Albuterol Sulfate 2.5 mg/3 ml Neb NEB PRN (14:54)
[2020-09-09] MEDS ORDERED: Polyethylene Glycol 3350 17 GM Packet PO PRN (14:55)
[2020-09-09] MEDS ORDERED: Pancrelipase DR 12,000 1 CAP FS PRN (15:15)
[2020-09-09] MEDS ORDERED: Sodium Bicarbonate Tab 325 MG TAB PER TUBE PRN (15:15)
[2020-09-09] MEDS: Nystatin Powder 15 GM BOT TOP SCH ×2 (16:09→22:48)
[2020-09-09] MEDS: Vancomycin HCl 25 MG/ML Oral PER TUBE SCH (17:47)
[2020-09-09] MEDS: Famotidine 20 MG TAB PER TUBE SCH (20:52)
[2020-09-09] MEDS: Metoprolol Tartrate 25 MG TAB PER TUBE SCH (20:52)
[2020-09-09] MEDS: Benzonatate 100 MG CAP PO SCH (20:52)
[2020-09-09] MEDS ORDERED: Atorvastatin Calcium 10 MG TAB PER TUBE SCH (21:00)
[2020-09-10] MEDS: Vancomycin HCl 25 MG/ML Oral PER TUBE SCH ×3 (00:09→13:18)
[2020-09-10] MEDS: Famotidine 20 MG TAB PER TUBE SCH (08:42)
[2020-09-10] MEDS: Metoprolol Tartrate 25 MG TAB PER TUBE SCH (08:42)
[2020-09-10] MEDS ORDERED: Benzonatate 100 MG CAP PO PRN (08:45)
[2020-09-10] MEDS ORDERED: POLYETHYLENE GLYCOL PO PRN (08:45)
[2020-09-10] MEDS ORDERED: Polyethylene Glycol 3350 17 GM Packet PO PRN (08:55)
[2020-09-10] MEDS ORDERED: Amlodipine 5 MG TAB PER TUBE SCH (09:00)
[2020-09-10] MEDS ORDERED: Saccharomyces boulardii 250 MG CAP PER TUBE SCH (09:00)
[2020-09-10] MEDS ORDERED: Aspirin 81 mg Enteric Coated Tablet PO SCH (09:00)
[2020-09-10] MEDS ORDERED: FLUoxetine HCl 10 MG CAP PO SCH (09:00)
[2020-09-10] MEDS: Nystatin Powder 15 GM BOT TOP SCH (09:40)
[2020-09-10] MEDS: Benzonatate 100 MG CAP PO SCH (09:40)
--- NOTE | 2020-09-10 09:55 | CT ---
CT BRAIN WITHOUT CONTRAST: HISTORY: Fall, altered mental status. COMPARISON: 09/03/2020. FINDINGS: Changes of cortical atrophy, chronic small-vessel ischemic disease, and old left MCA infarction are a gain seen. The ventricular size is stable and the basilar cisterns patent. There is also stable ex vacuo dilatation of the left lateral ventricle. No evidence of acute infarct, hemorrhage, midline shift, or abnormal extraaxial fluid collections are seen. The bony calvarium is intact. The visualized paranasal sinuses and mastoid air cells are wel l aerated. IMPRESSION: No CT evidence of acute intracranial process. POS: AH
[2020-09-10 11:37] VITALS: BP 119/68; TEMP 97.6
[2020-09-10] MEDS ORDERED: FLU VACC QS2020-21(65YR UP)/PF 240 MCG/0.7 ML SYRINGE IM ONE (14:45)
--- NOTE | 2020-09-10 23:53 | DIS ---
DATE OF ADMISSION: 09/09/2020 DATE OF DISCHARGE: 09/10/2020 DISCHARGE DIAGNOSES: 1. PEG tube placement. 2. Failure to thrive. 3. Hypertension. 4. Alzheimer disease. HOSPITAL COURSE: The patient is 75-year-old male, who initially presented to the hospital for a PEG tube placement. He underwent a PEG tube placement by GI, was tolerating his feeds. He also has a history of recent C diff with the antibiotics. The patients' hospital course was complicated with a fall. He was watched for over 4 to 6 hours. Neuro checks were stable. CT head was negative. The patient at this time will be discharged back to the nursing [facility] facility. HOME MEDICATIONS: Will be resumed and they are as of the followin. Pepcid 20 mg twice a day. This is new given his EGD finding. 2. Norvasc 5 mg daily. 3. Aspirin 81 mg daily. 4. Lipitor 10 mg daily. 5. Prozac 10 mg daily. 6. Metoprolol 25 mg twice a day. 7. Nystatin topical t.i.d. 8. MiraLAX 17 g daily. 9. Vancomycin 125 every 6. PHYSICAL EXAMINATION: VITAL SIGNS ON DISCHARGE: Temperature 97.6, 65, 16, 96% on room air, and 119/68. GENERAL: He is awake, oriented to self. CV: S1, S2 present. No murmurs, rubs, or gallops. LUNGS: Are clear to auscultation. ABDOMEN: He does have a PEG tube with a binder. He has some 1 to 2+ lower extremity pitting edema. NEUROVASCULAR HARMAN: He is moving all 4 extremities. DISPOSITION: Again, patient will be discharged back to his nursing care facility. Job ID: [id number]
== END 2020-09-10 13:50 | disposition home or self-care (01) ==
LOC: SDC 06:53 → ONC 10:45
PROVIDERS: ADMIT Internal Medicine; ATTEND Internal Medicine
PROC: 0DH63UZ Insertion of Feeding Device into Stomach, Percutaneous Approach (ICD-10-PCS; principal; 2020-09-09)
PROC: 0DB68ZX Excision of Stomach, Via Natural or Artificial Opening Endoscopic, Diagnostic (ICD-10-PCS; 2020-09-09)
DX: I69.391 Dysphagia following cerebral infarction (principal); R13.12 Dysphagia, oropharyngeal phase; K26.9 Duodenal ulcer, unspecified as acute or chronic, without hemorrhage or perforation; K31.89 Other diseases of stomach and duodenum; G30.9 Alzheimer's disease, unspecified; F02.80 Dementia in other diseases classified elsewhere, unspecified severity, without behavioral disturbance, psychotic disturbance, mood disturbance, and anxiety; I10 Essential (primary) hypertension; E78.5 Hyperlipidemia, unspecified; K21.9 Gastro-esophageal reflux disease without esophagitis; F32.9 Major depressive disorder, single episode, unspecified; A49.8 Other bacterial infections of unspecified site; I48.21 Permanent atrial fibrillation; E46 Unspecified protein-calorie malnutrition; R62.7 Adult failure to thrive; Z68.29 Body mass index [BMI] 29.0-29.9, adult; Z79.82 Long term (current) use of aspirin; Z79.899 Other long term (current) drug therapy; Z88.5 Allergy status to narcotic agent; Z88.8 Allergy status to other drugs, medicaments and biological substances; Z91.02 Food additives allergy status
CPT/HCPCS: 70450; 88305; 88312; G0378; J0690; J2704

== ENCOUNTER 2022-04-17 14:51 | Emergency (ER) | payer MEDICARE ==
[~2022-04-17 14:51] MED LIST changes: +GASTROGRAFIN 30 ML BOT ONE; -Iopamidol-370 76% 500 ML 1 ML ONE
== END 2022-04-17 16:30 | disposition home or self-care (01) ==
LOC: ERS 14:51
DX: K94.23 Gastrostomy malfunction (principal); Z86.73 Personal history of transient ischemic attack (TIA), and cerebral infarction without residual deficits; K21.9 Gastro-esophageal reflux disease without esophagitis; I10 Essential (primary) hypertension
CPT/HCPCS: 43762; 74018; Q9963

== ENCOUNTER → 2022-05-15 | Day surgery (SDC) | payer MEDICARE, BC, OTHER ==
[~2022-05-15] MED LIST changes: +CEFAZOLIN 2 GM VIAL ONE; -GASTROGRAFIN 30 ML BOT ONE; +Ondansetron HCl/PF 4 MG/2 ML Vial IVP PRN; +PROPOFOL 200 MG/20 ML VIAL ONE; +Promethazine HCl 25 MG/ML VIAL IM PRN; +Promethazine HCl 25 MG/ML VIAL IVPB PRN; +Sodium Chloride 0.9% 100 ML ONE; +fentaNYL Citrate/PF 100 MCG/2 ML SYRINGE ONE
== END ==
LOC: SDC 12:47
PROVIDERS: ATTEND Student in an Organized Health Care Education/Training Program
PROC: 0DH63UZ Insertion of Feeding Device into Stomach, Percutaneous Approach (ICD-10-PCS; principal; 2022-05-15)
DX: Z43.1 Encounter for attention to gastrostomy (principal); K44.9 Diaphragmatic hernia without obstruction or gangrene; I10 Essential (primary) hypertension; G30.9 Alzheimer's disease, unspecified; F02.80 Dementia in other diseases classified elsewhere, unspecified severity, without behavioral disturbance, psychotic disturbance, mood disturbance, and anxiety; J44.9 Chronic obstructive pulmonary disease, unspecified; I48.21 Permanent atrial fibrillation; D64.9 Anemia, unspecified; E78.5 Hyperlipidemia, unspecified; Z79.82 Long term (current) use of aspirin; Z79.899 Other long term (current) drug therapy; Z88.5 Allergy status to narcotic agent; Z88.8 Allergy status to other drugs, medicaments and biological substances; Z20.822 Contact with and (suspected) exposure to COVID-19
CPT/HCPCS: 36415; 83036; 87811; J0690; J2704; J3490

== ENCOUNTER 2024-08-20 12:22 | Emergency (ER) | payer OTHER ==
[~2024-08-20 12:22] MED LIST changes: -CEFAZOLIN 2 GM VIAL ONE; +GASTROGRAFIN 30 ML BOT ONE; -Ondansetron HCl/PF 4 MG/2 ML Vial IVP PRN; -PROPOFOL 200 MG/20 ML VIAL ONE; -Promethazine HCl 25 MG/ML VIAL IM PRN; -Promethazine HCl 25 MG/ML VIAL IVPB PRN; -Sodium Chloride 0.9% 100 ML ONE; -fentaNYL Citrate/PF 100 MCG/2 ML SYRINGE ONE
== END 2024-08-20 15:15 | disposition home or self-care (01) ==
LOC: ERS 12:22
DX: K94.23 Gastrostomy malfunction (principal); I10 Essential (primary) hypertension; Z79.82 Long term (current) use of aspirin; Z79.899 Other long term (current) drug therapy
CPT/HCPCS: 43762; 74018; Q9963